=== PATIENT | male | born 1935 | race Caucasian/White ===

== ENCOUNTER 2020-01-22 07:47 | Outpatient (REF) | payer MEDICARE, OTHER, SELFPAY | END 2020-01-22 07:48 | disposition home or self-care (01) | LOC: HO.XRAY 07:47 | DX: Z13.89 Encounter for screening for other disorder (principal) ==

== ENCOUNTER 2020-03-28 08:07 | Inpatient (IN) | payer OTHER, MEDICARE, SELFPAY ==
[2020-03-28] VITALS (10 sets, daily range): BP systolic 121–151; BP diastolic 50–70; PULSE 59–66; RESP 12–22; TEMP 37–37.1; O2SAT 85–99; BMI 26.4
--- NOTE | ~2020-03-28 | US_ITS ---
EXAMINATION: US VENOUS ULTRASOUND WITH DOPPLER LOWER EXTREMITY, BILATERAL CLINICAL INFORMATION: Elevated d-dimer. Covid positive. COMPARISON: None TECHNIQUE: Ultrasound of the deep veins is performed from the hip to the calf with compression sonography and color and pulse Doppler assessment. Spectral analysis with color-flow imaging is performed. FINDINGS: RIGHT: There is normal venous compression and respiratory variation and augmented flow. The visualized common femoral vein, superficial femoral vein, profunda femoral vein, popliteal vein, and the trifurcation region shows no evidence of deep venous thrombosis. There is echogenic material seen in the greater saphenous vein. This extends to 1.4 cm from the saphenofemoral junction. The greater saphenous vein is otherwise not visualized. There is a surgical scar in this region. It is possible this represents changes from old vein stripping or vein harvest/ligation. There is no significant popliteal fossa cyst. LEFT: There is normal venous compression and respiratory variation and augmented flow. The visualized common femoral vein, superficial femoral vein, profunda femoral vein, popliteal vein, and the trifurcation region shows no evidence of deep venous thrombosis. There is no significant popliteal fossa cyst. US/US venous duplex LE BI IMPRESSION: No DVT demonstrated in the bilateral lower extremity. Echogenic material in the right greater saphenous vein 1.4 cm from the saphenofemoral junction. The remainder of the right greater saphenous vein cannot be identified and there is an adjacent surgical scar. This may represent changes from old stripping or vein harvesting/ligation.
--- NOTE | ~2020-03-28 | XR_ITS ---
EXAMINATION: XR CHEST CLINICAL INFORMATION: Hypoxia COMPARISON: 03/28/2020 TECHNIQUE: Frontal view of the chest was obtained. FINDINGS: Left chest wall pacer is unchanged. Median sternotomy wires. The lungs are well expanded. Patchy bilateral airspace opacities at the mid to lower lung. This is increased from prior. No pleural effusion or pneumothorax. The cardiomediastinal silhouette is unchanged, with a calcified aorta. XR/XR chest 1V IMPRESSION: Increased patchy bilateral airspace opacities.
--- NOTE | ~2020-03-28 | XR_ITS ---
EXAMINATION: XR CHEST CLINICAL INFORMATION: COVID COMPARISON: CT chest dated 03/23/2020 TECHNIQUE: Frontal view of the chest was obtained. FINDINGS: There are some questionable patchy opacities within the lower lungs bilaterally. No pleural effusion or pneumothorax. Normal heart size. Pulmonary vascularity within normal limits. Stably positioned dual-lead pacemaker. XR/XR chest 1V IMPRESSION: Questionable patchy lower lung airspace opacities versus artifact/summation shadow. Please note that portable radiographs are insensitive for mild pneumonitis.
--- NOTE | ~2020-03-28 | XR_ITS ---
EXAMINATION: XR CHEST CLINICAL INFORMATION: Line placement COMPARISON: 02/29/2020 TECHNIQUE: Frontal view of the chest was obtained. FINDINGS: Since the prior study, a right IJ line has been placed with its tip in the right atrium. No pneumothorax. Again seen is a bipolar left chest wall pacemaker. Bilateral patchy airspace opacities are unchanged. XR/XR chest 1V IMPRESSION: Right IJ line has its tip in the right atrium.
--- NOTE | ~2020-03-28 | CT_ITS ---
EXAMINATION: CT ANGIOGRAM OF THE CHEST WITH AND WITHOUT CONTRAST (CT PULMONARY ANGIOGRAM FOR PE) CLINICAL INFORMATION: Reason for Exam + covid c hypoxia at 85% on RA c chest pain COMPARISON: 03/23/2020 TECHNIQUE: Prior to contrast administration, noncontrast localization images were obtained. Subsequently, multidetector volumetric imaging was performed from the thoracic inlet to below the diaphragms following the administration of 80 mL Omnipaque 350 intravenous contrast. No contrast reaction reported Sagittal, coronal, and MIP oblique sagittal reformatted images were obtained on the CT workstation, uploaded to PACS, and reviewed. This CT examination was performed using dose optimization techniques as appropriate, variously including the following: *Automated exposure control *Adjustment of mA and/or kV according to patient size (this includes techniques or standardized protocols for targeted exams where dose is matched to indication/reason for exam; i.e. extremities or head) *Use of iterative reconstruction technique Total exam dose-length product 301 mGy-cm FINDINGS: QUALITY OF STUDY/CONTRAST BOLUS: Satisfactory. PULMONARY ARTERIES: No central or segmental pulmonary emboli. THORACIC AORTA: No aneurysm or dissection. LUNG: There are groundglass and predominantly patchy opacities within the lower lungs bilaterally with slight peripheral predominance compatible with COVID pneumonitis. Mild diffuse bronchial wall thickening and scattered endobronchial secretions are present. PLEURA: No pleural effusion or pneumothorax. MEDIASTINUM: Cardiomegaly. Triple vessel coronary calcifications. No pericardial effusion. No hilar or mediastinal lymphadenopathy. No evidence of septal bowing or right heart strain. No reflux of contrast into the hepatic veins to suggest elevated right heart pressures. CHEST WALL/AXILLA: No axillary or internal mammary lymphadenopathy. OSSEOUS STRUCTURES: No acute or suspicious osseous abnormality. UPPER ABDOMEN: Unremarkable. CT/CT angio chest PE protocol IMPRESSION: * No evidence of pulmonary embolism. * New bilateral lower lung groundglass and patchy airspace opacities are in a pattern classic for COVID pneumonitis, mild to moderate. * Cardiomegaly and triple vessel coronary calcifications. VTE: negative
--- NOTE | 2020-03-28 08:25 | ECG_ITS ---
Test Reason : SHORT OF BREATH Blood Pressure : / mmHG Vent. Rate : 060 BPM Atrial Rate : 060 BPM P-R Int : 196 ms QRS Dur : 160 ms QT Int : 474 ms P-R-T Axes : 072 -33 070 degrees QTc Int : 474 ms Atrial-paced rhythm Left axis deviation Left bundle branch block Abnormal ECG When compared with ECG of 23-MAR-2020 20:36, Electronic atrial pacemaker has replaced Sinus rhythm Referred By: Mikki Martinez Electronically Signed By:ABDIRIZAK STREET MD
[2020-03-28] MEDS: guaiFENesin DM 200/20/10 ML 10 ML SYRUP PO (09:00)
[2020-03-28] MEDS: 0.9 % Sodium Chloride 1,000 ML 999 ML IVCONT (09:01)
[2020-03-28 09:10] LABS: Base Excess VBG 0.3 mmol/L; HCO3 VBG 23 mmol/L; PCO2 VBG 32 mmHg; PO2 VBG 136 mmHg; pH VBG 7.46 (7.32-7.43)
[2020-03-28 09:16] LABS: Hemoglobin 13.7 g/dl (14.0-18.0); Imm Gran Abs Auto 0.09 X10*3/uL (0.00-0.03); Imm Gran Pct Auto 0.7 % (0.0-0.4); MANUAL DIFF FLAG SCAN; PLT CLUMP 1; SCAN SMEAR FLAG 1
[2020-03-28] MEDS: cefTRIAXone sodium 1 GM in 0.9 % Sodium Chloride 50 ML IV (09:16)
[2020-03-28 09:18] LABS: Basophils Percent Auto 0.2 % (0-2); Hematocrit 43.1 % (42-52); Lymphocytes Absolute Auto 0.6 X10*3/uL (1.2-4.9); Lymphocytes Percent Auto 4.9 % (20-40); Mean Corpuscular HGB Conc 31.8 g/dl (31.0-36.0); Mean Corpuscular Hemoglobin 26.9 pg (27.0-33.0); Mean Corpuscular Volume 84.5 fL (80-98); Mean Platelet Volume 11.3 fL (9.4-12.4); Monocytes Absolute Auto 0.8 X10*3/uL (0.1-1.2); Monocytes Percent Auto 6.1 % (2-11); Neutrophils Absolute Auto 11.2 X10*3/uL (2.0-8.3); Neutrophils Percent Auto 88.1 % (45-73); Platelet Count 243 X10*3/uL (160-400); Red Cell Distribution Width 16.3 % (11.0-16.0); White Blood Count 12.7 X10*3/uL (4.8-10.8)
--- NOTE | 2020-03-28 09:37 | ED_ITS ---
HPI - SOB/Dyspnea General Chief Complaint: Dyspnea <LIAM Horton - Last Filed: 03/28/20 15:40> Stated Complaint: sob <LIAM Horton - Last Filed: 03/28/20 15:40> Time Seen by Provider: 03/28/20 08:22 <LIAM Horton - Last Filed: 03/28/20 15:40> Source: patient and EMS <LIAM Horton - Last Filed: 03/28/20 15:40> Mode of arrival: EMS <LIAM Horton - Last Filed: 03/28/20 15:40> Limitations: no limitations <LIAM Horton Last Filed: 03/28/20 15:40> History of Present Illness HPI Narrative: 84-year-old male with a past medical history of atrial fibrillation with RVR currently on Eliquis and Medtronic pacer placement on 03/12/2020 at [facility], left bundle-branch block, CHF, ischemic cardiomyopathy with last EF 25-30%, CAD status post CABG x3 in 1997, hypertension, hyperlipidemia, CKD, hyperthyroidism, dysphagia, odynophagia, non alcoholic fatty liver, IBS, GERD, duodenal ulcer, colon polyps and neuropathy presenting to the ED with complaints of worsening shortness of breath with associated productive cough with clear/white colored sputum, chest wall discomfort and generalized weakness that started on Sunday (5 days ago) where he received a positive COVID test worse today. Patient was seen here and Reports that he was given a Z-Chris and took as prescribed. On arrival patient was on 85% on room air therefore was placed on 3 L of nasal cannula oxygen and is now some saturating at 94% on the 3 L. patient denies any fevers, dizziness, headaches, neck pain/stiffness, nausea/vomiting, palpitations, extremity edema, abdominal pain, diarrhea or constipation or any other symptoms complaints or concerns at this time. <LIAM Horton - Last Filed: 03/28/20 15:40> MD elicited complaint: shortness of breath, cough, pain with inspiration and chest pain <LIAM Horton - Last Filed: 03/28/20 15:40> Pertinent past history: congestive heart failure <LIAM Horton - Last Filed: 03/28/20 15:40> Onset (ago): day(s) (Five days worse today) <LIAM Horton - Last Filed: 03/28/20 15:40> Context: recent illness (Positive COVID on 03/23/2020) <LIAM Horton - Last Filed: 03/28/20 15:40> Timing: constant <LIAM Horton - Last Filed: 03/28/20 15:40> Severity: severe <LIAM Horton - Last Filed: 03/28/20 15:40> Exacerbating factors: lying flat, exertion, movement, coughing, inspiration, talking and deep breaths <LIAM Horton - Last Filed: 03/28/20 15:40> Relieving factors: nothing <LIAM Horton - Last Filed: 03/28/20 15:40> Known history of: congestive heart failure <LIAM Horton - Last Filed: 03/28/20 15:40> Associated symptoms: pain with inspiration, cough, sputum production, orthopnea and chest congestion <LIAM Horton - Last Filed: 03/28/20 15:40> Treatment prior to arrival: oxygen <LIAM Horton Last Filed: 03/28/20 15:40> Related Data Home oxygen amount: none <LIAM Horton - Last Filed: 03/28/20 15:40> Home Medications: Home Medications Medication Instructions Recorded Confirmed atorvastatin 1 tab PO DAILY 02/02/20 03/28/20 gabapentin 1 cap PO BID 02/02/20 03/28/20 ranolazine 1 tab PO BID 02/02/20 03/28/20 tamsulosin 1 cap PO DAILY 02/02/20 03/28/20 apixaban [Eliquis] 1 tab PO BID 03/23/20 03/28/20 sacubitril-valsartan [Entresto] 1 tab PO BID 03/23/20 03/28/20 sotalol 40 mg PO BID 03/23/20 03/28/20 Previous Rx's Medication Instructions Recorded omeprazole 20 mg PO BID #60 cap 02/05/20 methimazole 10 mg tablet 10 mg PO DAILY 30 Days #30 tab 03/02/20 <LIAM Horton - Last Filed: 03/28/20 15:40> Allergies/Adverse Reactions: Allergies Allergy/AdvReac Type Severity Reaction Status Date / Time simvastatin [From ZOCOR] Allergy Mild MUSCLE Verified 03/02/20 11:00 CRAMPS, stomsach cramps <LIAM Horton - Last Filed: 03/28/20 15:40> Review of Systems Review of Systems: Constitutional : No Weight loss, No Fever, no night sweats, + Chills, + Fatigue, + Malaise ENT/Mouth : No Hearing loss, No Ear Pain, No Nasal Congestion, No Sinus Pain, No Hoarseness, No sore throat, No Rhinorrhea, No Swallowing Difficulty Eyes: No Eye Pain, No Swelling, No Redness, No Foreign Body, No Discharge, No Vision Changes Cardiovascular : + Chest pain worse c cough, + SOB, + Dyspnea on Exertion, + Orthopnea, No Edema, No extremity swelling, No Palpitations Respiratory : + Cough, + Sputum, No Wheezing, No Dyspnea Gastrointestinal : No Nausea, No Vomiting, No Diarrhea, No abdominal Pain, No Hematochezia, No Melena Genitourinary : No irregular bleeding, No Dysuria, No Urinary Frequency, No Hematuria, No Urinary Incontinence, No Urgency, No Flank Pain, No Urinary Flow Changes, No Hesitancy Musculoskeletal : No joint pain, No Myalgias, No Joint Swelling Skin : No Skin Lesions, No rash Neuro : + Gen Weakness, No focal weakness, No Numbness, No Paresthesias, No Loss of Consciousness, No Dizziness, No Headache Psych : No Anxiety/Panic, No Depression, No SI/HI/AH/VH Heme/Lymph: No Bruising, No Bleeding,No Lymphadenopathy Endocrine : No Polyuria, No Polydipsia, No Temperature Intolerance <LIAM Horton - Last Filed: 03/28/20 15:40> Yes all other systems are reviewed and are negative <LIAM Horton - Last Filed: 03/28/20 15:40> [facility] Past Medical History Attestation statement: The following information was validated with the patient. <LIAM Horton - Last Filed: 03/28/20 15:40> Medical History: Medical History Afib CAD (coronary artery disease) CHF (congestive heart failure) CKD (chronic kidney disease) Colon polyps Coronary artery disease involving coronary bypass graft Duodenal ulcer GERD (gastroesophageal reflux disease) Hiatal hernia Hyperlipidemia Hypertension IBS (irritable bowel syndrome) Ischemic cardiomyopathy Left bundle-branch block, unspecified Neuropathy Nonalcoholic fatty liver disease <LIAM Horton - Last Filed: 03/28/20 15:40> Surgical History: Surgical History History of tonsillectomy Hx of CABG <LIAM Horton - Last Filed: 03/28/20 15:40> Family History Family History: Family History Mother Heart disease Father Myocardial infarction <LIAM Horton - Last Filed: 03/28/20 15:40> Social History Social History: Social History Household Members: Children Housing: House Alcohol intake: never Smoking Status: Former smoker Smoked in Last 30 Days: No Second Hand Smoke Exposure: No Use of substances other than those prescribed or required for medical reasons: No Advance Directives: No Advance Directives Information Provided: No service: Yes Current occupational status: retired <LIAM Horton - Last Filed: 03/28/20 15:40> Physical Exam Vital Signs: Vital Signs: Last Vital Signs Temp 98.6 F 03/28/20 15:57 Pulse 60 03/28/20 22:39 Resp 22 H 03/28/20 22:00 BP 151/70 H 03/28/20 22:39 Pulse Ox 94 03/28/20 22:39 Body Mass Index 26.4 Vital signs have been reviewed as normal and appeared to be correct. Blood pressure normal. Heart rate normal. Respiration rate normal. Temperature normal. Oxygen saturation hypoxic at 85 % on room air. <LIAM Horton - Last Filed: 03/28/20 15:40> Vital Signs: Last Vital Signs Temp 98.6 F 03/28/20 15:57 Pulse 60 03/28/20 22:39 Resp 22 H 03/28/20 22:00 BP 151/70 H 03/28/20 22:39 Pulse Ox 94 03/28/20 22:39 Body Mass Index 26.4 <Verna Nice MD - Last Filed: 03/29/20 06:08> Appearance: Alert. Oriented X3. Moderate respiratory distress. Head: Normal external exam. Normocephalic. Atraumatic. Able to rotate head bilaterally. Eyes: PERRLA. EOMI. No nystagmus noted. Conjunctiva and sclera normal. Eyelids normal. Corneal reflex normal. ENT:Hearing normal. Pharynx normal. Uvula midline. tongue midline. Moist mucous membranes. No trismus noted. No drooling noted. No muffled voice noted. No nystagmus noted. Neck: Normal inspection. Neck supple. FROM. No adenopathy. Trachea midline. Thyroid Normal. No meningeal signs. No neck mass noted. CVS: Normal heart rate and rhythm. Heart sound normal. No murmurs noted. Pulses normal throughout. Respiratory: Moderate respiratory distress with hypoxia and accessory muscle usage noted with faint expiratory wheezing at the upper bases anteriorly and posteriorly. With decreased breath sounds. Otherwise no rales/rhonchi noted. No crepitus noted. No flail chest noted. Abdomen: Soft and nontender. Bowel sounds normal in all 4 quadrants. No distention noted. No organomegaly noted. No visible injury noted. Back: No CVA tenderness. Full range of motion noted. Skin: Skin warm and dry. Normal skin color. Normal skin turgor. No rashes /lesions/lacerations noted. Extremities: No lower extremity edema. No calf tenderness noted. Extremities exhibit normal range of motion. Extremities nontender. Able to shrug shoulders bilaterally and keep up against resistance. Neuro: Oriented X 3. No motor deficit. No sensory deficit. Reflexes normal. Moving all extremities. No focal motor deficits. Cranial nerves II-XI intact bilaterally. Facial strength normal. Normal cognition. Speech normal. Gait normal. Strength 5/5 throughout. No pronator drift. No tremor noted. No fasciculations noted. No rigidity noted. Muscle tone normal throughout. No asterixis noted. <LIAM Horton - Last Filed: 03/28/20 15:40> Course Course Course Narrative: 8:25AM 84-year-old male with a past medical history of atrial fibrillation with RVR currently on EliIID and Medtronic pacer placement on 03/12/2020 at [facility], left bundle-branch block, CHF, ischemic cardiomyopathy with last EF 25-30%, CAD status post CABG x3 in 1997, hypertension, hyperlipidemia, CKD, hyperthyroidism, dysphagia, odynophagia, non alcoholic fatty liver, IBS, GERD, duodenal ulcer, colon polyps and neuropathy who is + for COVID since 03/23/20 presenting to the ED with complaints of worsening shortness of breath with associated productive cough with clear/white colored sputum, chest wall discomfort and generalized weakness x 5 days worse today despite being seen here on 03/23/2020 and given a Z- Chris and took as prescribed. On arrival patient is alert and oriented x3 although is in moderate respiratory distress his oxygen saturation was 85% on room air therefore was placed on 3 L of nasal cannula oxygen and is now some saturating at 94% on the 3 L. otherwise appears well developed/well nourished. Nontoxic appearing. No signs of dehydration. Concern for PE versus CHF versus ACS versus worsening COVID. Plan: Labs, blood cultures, lactic acid, EKG, chest x-ray and a VBG. Provide IV fluids, Robitussin for the patient's cough, IV Decadron 10 mg, 1 g of Rocephin then re-evaluate. <LIAM Horton - Last Filed: 03/28/20 15:40> 0555: On re-evaluation patient was noted to be in the low 80s 83-84% on max Venturi mask at 55% and after application 4 L of nasal cannula concomitantly only mild improvement noted to 88%. On clinical exam, patient does appear comfortable, no tachypnea or increased work of breathing noted. The decision was made to place patient on high-flow nasal cannula and the inpatient hospitalist team was notified of this decision. <Verna Nice MD - Last Filed: 03/29/20 06:08> Reevaluation(s) Reevaluation #1: - White blood cell count 30346. - D-dimer 319. - VBG pH 7.46 otherwise the rest of the VBG is within normal limits. - sodium 134. - BUN 20. - Magnesium 2.8. - LDH 330. - CRP 1.03. - BNP 348. - Troponin 5.8. - Lactic acid 2.2. - Otherwise all other labs are within normal limits. - CXR revealed questionable patchy lower lung airspace opacities versus artifact. - EKG revealed Atrial paced rhythm with a ventricular rate of 60 otherwise no acute ischemic changes and similar when compared to prior EKG on 03/23/2020. - therefore due to elevated D-dimer will obtain a CTA of chest for PE. Plan is to admit for COVID with hypoxia with pneumonia. Patient understands agrees with this plan. <LIAM Horton - Last Filed: 03/28/20 15:40> Time: 11:30 <LIAM Horton Last Filed: 03/28/20 15:40> Reevaluation #2: - still awaiting CTA of chest for PE - I spoke to the hospitalist Dorothy Sanders PA-C with accepted admission at this time. Patient understands and agrees the plan. <LIAM Horton - Last Filed: 03/28/20 15:40> Time: 12:22 <LIAM Horton Last Filed: 03/28/20 15:40> Reevaluation #3: - for PE negative for pulmonary embolism although revealed no bilateral lower lung ground-glass opacity and patchy airspace opacities are in pattern of classic COVID pneumonitis [id number]. Cardiomegaly and triple vessel coronary calcifications noted. Plan is to admit to the hospitalist Dorothy Sanders PA-C accepted admission. Patient understands agrees with this plan. <LIAM Horton - Last Filed: 03/28/20 15:40> Time: 13:41 <LIAM Horton Last Filed: 03/28/20 15:40> MDM - SOB/Dyspnea Differential Diagnosis Differential diagnosis: Likely congestive heart failure, pneumonia, asthma with exacerbation, pulm onary embolism, pleural effusion and anemia <LIAM Horton Last Filed: 03/28/20 15:40> Medical Records Attestation: I reviewed the patient's medical records. <LIAM Horton Last Filed: 0 03/28/20 15:40> Lab Data Attestation: I reviewed the patient's lab results. <LIAM Horton Last Filed: 0 03/28/20 15:40> Result diagrams: : 03/28/20 08:55 03/28/20 08:55 <LIAM Horton - Last Filed: 03/28/20 15:40> Labs: Lab Results 03/28/20 03/28/20 03/28/20 Range/Units 08:55 08:55 08:55 WBC 12.7 H (4.8-10.8) X10*3/uL RBC 5.10 D (4.60-5.80) X10*6/uL Hgb 13.7 L D (14.0-18.0) g/dl Hct 43.1 D (42-52) % MCV 84.5 (80-98) fL MCH 26.9 L (27.0-33.0) pg MCHC 31.8 (31.0-36.0) g/dl RDW 16.3 H (11.0-16.0) % Plt Count 243 (160-400) X10*3/uL MPV 11.3 (9.4-12.4) fL Immature Gran % (Auto) 0.7 H (0.0-0.4) % Neut % (Auto) 88.1 H (45-73) % Lymph % (Auto) 4.9 L (20-40) % Foster % (Auto) 6.1 (2-11) % Eos % (Auto) 0.0 (0-4) % Baso % (Auto) 0.2 (0-2) % Lymph # (Auto) 0.6 L (1.2-4.9) X10*3/uL Foster # (Auto) 0.8 (0.1-1.2) X10*3/uL Eos # (Auto) 0.0 (0.0-0.4) X10*3/uL Baso # (Auto) 0.0 (0.0-0.2) X10*3/uL Abs Immat Gran (auto) 0.09 H (0.00-0.03) X10*3/uL Absolute Neuts (auto) 11.2 H (2.0-8.3) X10*3/uL Absolute Nucleated RBC 0.000 (0.0-0.012) X10*3/uL Nucleated RBC % (auto) 0.0 (0.0-0.2) /100WBC Smear Tech's Comments VERIFIED PT (10.8-13.0) SEC INR (0.9-1.1) APTT (24.1-38.0) SEC D-Dimer NG/ML VBG pH (7.32-7.43) VBG pCO2 mmHg VBG pO2 mmHg VBG HCO3 mmol/L VBG O2 Saturation % VBG Base Excess mmol/L Sodium 134 L (135-145) mmol/L Potassium 5.1 (3.3-5.1) mmol/L Chloride 99 (96-108) mmol/L Carbon Dioxide 25 (22-29) mmol/L Anion Gap 15 (12-20) BUN 20 H (9-16) mg/dL Creatinine 0.95 (0.5-1.4) mg/dL Estim Creat Clear Calc 51.3 Estimated GFR > 60 Random Glucose 94 (60-115) mg/dL Lactic Acid (0.5-2.0) mmol/L Lactic Acid Fup @ 2Hr (0.5-2.0) mmol/L Calcium 9.5 D (8.4-10.2) mg/dL Magnesium 2.8 H (1.6-2.6) mg/dL Ferritin 89 (20-250) ng/mL Total Bilirubin 0.9 (0.0-1.0) mg/dL Direct Bilirubin 0.3 (0.0-0.5) mg/dL AST 25 (5-37) U/L ALT 21 (0-40) U/L Alkaline Phosphatase 84 (39-117) U/L Lactate Dehydrogenase 330 H (118-273) U/L Troponin I High Sens 5.8 (<3.5-35.0) ng/L C-Reactive Protein 1.03 H (< or = 0.50) mg/dL B-Natriuretic Peptide 348 H (<100) pg/mL Total Protein 7.5 (6.5-8.0) g/dL Albumin 4.2 (3.5-5.0) g/dL Procalcitonin ng/mL 03/28/20 03/28/20 03/28/20 Range/Units 08:55 08:55 09:11 WBC (4.8-10.8) X10*3/uL RBC (4.60-5.80) X10*6/uL Hgb (14.0-18.0) g/dl Hct (42-52) % MCV (80-98) fL MCH (27.0-33.0) pg MCHC (31.0-36.0) g/dl RDW (11.0-16.0) % Plt Count (160-400) X10*3/uL MPV (9.4-12.4) fL Immature Gran % (Auto) (0.0-0.4) % Neut % (Auto) (45-73) % Lymph % (Auto) (20-40) % Foster % (Auto) (2-11) % Eos % (Auto) (0-4) % Baso % (Auto) (0-2) % Lymph # (Auto) (1.2-4.9) X10*3/uL Foster # (Auto) (0.1-1.2) X10*3/uL Eos # (Auto) (0.0-0.4) X10*3/uL Baso # (Auto) (0.0-0.2) X10*3/uL Abs Immat Gran (auto) (0.00-0.03) X10*3/uL Absolute Neuts (auto) (2.0-8.3) X10*3/uL Absolute Nucleated RBC (0.0-0.012) X10*3/uL Nucleated RBC % (auto) (0.0-0.2) /100WBC Smear Tech's Comments PT (10.8-13.0) SEC INR (0.9-1.1) APTT (24.1-38.0) SEC D-Dimer NG/ML VBG pH 7.46 H (7.32-7.43) VBG pCO2 32 mmHg VBG pO2 136 mmHg VBG HCO3 23 mmol/L VBG O2 Saturation 99.0 % VBG Base Excess 0.3 mmol/L Sodium (135-145) mmol/L Potassium (3.3-5.1) mmol/L Chloride (96-108) mmol/L Carbon Dioxide (22-29) mmol/L Anion Gap (12-20) BUN (9-16) mg/dL Creatinine (0.5-1.4) mg/dL Estim Creat Clear Calc Estimated GFR Random Glucose (60-115) mg/dL Lactic Acid 2.2 H* (0.5-2.0) mmol/L Lactic Acid Fup @ 2Hr (0.5-2.0) mmol/L Calcium (8.4-10.2) mg/dL Magnesium (1.6-2.6) mg/dL Ferritin (20-250) ng/mL Total Bilirubin (0.0-1.0) mg/dL Direct Bilirubin (0.0-0.5) mg/dL AST (5-37) U/L ALT (0-40) U/L Alkaline Phosphatase (39-117) U/L Lactate Dehydrogenase (118-273) U/L Troponin I High Sens (<3.5-35.0) ng/L C-Reactive Protein (< or = 0.50) mg/dL B-Natriuretic Peptide (<100) pg/mL Total Protein (6.5-8.0) g/dL Albumin (3.5-5.0) g/dL Procalcitonin 0.03 ng/mL 03/28/20 03/28/20 Range/Units 09:49 11:44 WBC (4.8-10.8) X10*3/uL RBC (4.60-5.80) X10*6/uL Hgb (14.0-18.0) g/dl Hct (42-52) % MCV (80-98) fL MCH (27.0-33.0) pg MCHC (31.0-36.0) g/dl RDW (11.0-16.0) % Plt Count (160-400) X10*3/uL MPV (9.4-12.4) fL Immature Gran % (Auto) (0.0-0.4) % Neut % (Auto) (45-73) % Lymph % (Auto) (20-40) % Foster % (Auto) (2-11) % Eos % (Auto) (0-4) % Baso % (Auto) (0-2) % Lymph # (Auto) (1.2-4.9) X10*3/uL Foster # (Auto) (0.1-1.2) X10*3/uL Eos # (Auto) (0.0-0.4) X10*3/uL Baso # (Auto) (0.0-0.2) X10*3/uL Abs Immat Gran (auto) (0.00-0.03) X10*3/uL Absolute Neuts (auto) (2.0-8.3) X10*3/uL Absolute Nucleated RBC (0.0-0.012) X10*3/uL Nucleated RBC % (auto) (0.0-0.2) /100WBC Smear Tech's Comments PT 16.3 H (10.8-13.0) SEC INR 1.4 H (0.9-1.1) APTT 31.3 (24.1-38.0) SEC D-Dimer 319 NG/ML VBG pH (7.32-7.43) VBG pCO2 mmHg VBG pO2 mmHg VBG HCO3 mmol/L VBG O2 Saturation % VBG Base Excess mmol/L Sodium (135-145) mmol/L Potassium (3.3-5.1) mmol/L Chloride (96-108) mmol/L Carbon Dioxide (22-29) mmol/L Anion Gap (12-20) BUN (9-16) mg/dL Creatinine (0.5-1.4) mg/dL Estim Creat Clear Calc Estimated GFR Random Glucose (60-115) mg/dL Lactic Acid (0.5-2.0) mmol/L Lactic Acid Fup @ 2Hr 1.6 (0.5-2.0) mmol/L Calcium (8.4-10.2) mg/dL Magnesium (1.6-2.6) mg/dL Ferritin (20-250) ng/mL Total Bilirubin (0.0-1.0) mg/dL Direct Bilirubin (0.0-0.5) mg/dL AST (5-37) U/L ALT (0-40) U/L Alkaline Phosphatase (39-117) U/L Lactate Dehydrogenase (118-273) U/L Troponin I High Sens (<3.5-35.0) ng/L C-Reactive Protein (< or = 0.50) mg/dL B-Natriuretic Peptide (<100) pg/mL Total Protein (6.5-8.0) g/dL Albumin (3.5-5.0) g/dL Procalcitonin ng/mL <LIAM Horton - Last Filed: 03/28/20 15:40> Lab Results 03/28/20 03/28/20 03/28/20 Range/Units 08:55 08:55 08:55 WBC 12.7 H (4.8-10.8) X10*3/uL RBC 5.10 D (4.60-5.80) X10*6/uL Hgb 13.7 L D (14.0-18.0) g/dl Hct 43.1 D (42-52) % MCV 84.5 (80-98) fL MCH 26.9 L (27.0-33.0) pg MCHC 31.8 (31.0-36.0) g/dl RDW 16.3 H (11.0-16.0) % Plt Count 243 (160-400) X10*3/uL MPV 11.3 (9.4-12.4) fL Immature Gran % (Auto) 0.7 H (0.0-0.4) % Neut % (Auto) 88.1 H (45-73) % Lymph % (Auto) 4.9 L (20-40) % Foster % (Auto) 6.1 (2-11) % Eos % (Auto) 0.0 (0-4) % Baso % (Auto) 0.2 (0-2) % Lymph # (Auto) 0.6 L (1.2-4.9) X10*3/uL Foster # (Auto) 0.8 (0.1-1.2) X10*3/uL Eos # (Auto) 0.0 (0.0-0.4) X10*3/uL Baso # (Auto) 0.0 (0.0-0.2) X10*3/uL Abs Immat Gran (auto) 0.09 H (0.00-0.03) X10*3/uL Absolute Neuts (auto) 11.2 H (2.0-8.3) X10*3/uL Absolute Nucleated RBC 0.000 (0.0-0.012) X10*3/uL Nucleated RBC % (auto) 0.0 (0.0-0.2) /100WBC Smear Tech's Comments VERIFIED PT (10.8-13.0) SEC INR (0.9-1.1) APTT (24.1-38.0) SEC D-Dimer NG/ML VBG pH (7.32-7.43) VBG pCO2 mmHg VBG pO2 mmHg VBG HCO3 mmol/L VBG O2 Saturation % VBG Base Excess mmol/L Sodium 134 L (135-145) mmol/L Potassium 5.1 (3.3-5.1) mmol/L Chloride 99 (96-108) mmol/L Carbon Dioxide 25 (22-29) mmol/L Anion Gap 15 (12-20) BUN 20 H (9-16) mg/dL Creatinine 0.95 (0.5-1.4) mg/dL Estim Creat Clear Calc 51.3 Estimated GFR > 60 Random Glucose 94 (60-115) mg/dL Lactic Acid (0.5-2.0) mmol/L Lactic Acid Fup @ 2Hr (0.5-2.0) mmol/L Calcium 9.5 D (8.4-10.2) mg/dL Magnesium 2.8 H (1.6-2.6) mg/dL Ferritin 89 (20-250) ng/mL Total Bilirubin 0.9 (0.0-1.0) mg/dL Direct Bilirubin 0.3 (0.0-0.5) mg/dL AST 25 (5-37) U/L ALT 21 (0-40) U/L Alkaline Phosphatase 84 (39-117) U/L Lactate Dehydrogenase 330 H (118-273) U/L Troponin I High Sens 5.8 (<3.5-35.0) ng/L C-Reactive Protein 1.03 H (< or = 0.50) mg/dL B-Natriuretic Peptide 348 H (<100) pg/mL Total Protein 7.5 (6.5-8.0) g/dL Albumin 4.2 (3.5-5.0) g/dL Procalcitonin ng/mL 03/28/20 03/28/20 03/28/20 Range/Units 08:55 08:55 09:11 WBC (4.8-10.8) X10*3/uL RBC (4.60-5.80) X10*6/uL Hgb (14.0-18.0) g/dl Hct (42-52) % MCV (80-98) fL MCH (27.0-33.0) pg MCHC (31.0-36.0) g/dl RDW (11.0-16.0) % Plt Count (160-400) X10*3/uL MPV (9.4-12.4) fL Immature Gran % (Auto) (0.0-0.4) % Neut % (Auto) (45-73) % Lymph % (Auto) (20-40) % Foster % (Auto) (2-11) % Eos % (Auto) (0-4) % Baso % (Auto) (0-2) % Lymph # (Auto) (1.2-4.9) X10*3/uL Foster # (Auto) (0.1-1.2) X10*3/uL Eos # (Auto) (0.0-0.4) X10*3/uL Baso # (Auto) (0.0-0.2) X10*3/uL Abs Immat Gran (auto) (0.00-0.03) X10*3/uL Absolute Neuts (auto) (2.0-8.3) X10*3/uL Absolute Nucleated RBC (0.0-0.012) X10*3/uL Nucleated RBC % (auto) (0.0-0.2) /100WBC Smear Tech's Comments PT (10.8-13.0) SEC INR (0.9-1.1) APTT (24.1-38.0) SEC D-Dimer NG/ML VBG pH 7.46 H (7.32-7.43) VBG pCO2 32 mmHg VBG pO2 136 mmHg VBG HCO3 23 mmol/L VBG O2 Saturation 99.0 % VBG Base Excess 0.3 mmol/L Sodium (135-145) mmol/L Potassium (3.3-5.1) mmol/L Chloride (96-108) mmol/L Carbon Dioxide (22-29) mmol/L Anion Gap (12-20) BUN (9-16) mg/dL Creatinine (0.5-1.4) mg/dL Estim Creat Clear Calc Estimated GFR Random Glucose (60-115) mg/dL Lactic Acid 2.2 H* (0.5-2.0) mmol/L Lactic Acid Fup @ 2Hr (0.5-2.0) mmol/L Calcium (8.4-10.2) mg/dL Magnesium (1.6-2.6) mg/dL Ferritin (20-250) ng/mL Total Bilirubin (0.0-1.0) mg/dL Direct Bilirubin (0.0-0.5) mg/dL AST (5-37) U/L ALT (0-40) U/L Alkaline Phosphatase (39-117) U/L Lactate Dehydrogenase (118-273) U/L Troponin I High Sens (<3.5-35.0) ng/L C-Reactive Protein (< or = 0.50) mg/dL B-Natriuretic Peptide (<100) pg/mL Total Protein (6.5-8.0) g/dL Albumin (3.5-5.0) g/dL Procalcitonin 0.03 ng/mL 03/28/20 03/28/20 Range/Units 09:49 11:44 WBC (4.8-10.8) X10*3/uL RBC (4.60-5.80) X10*6/uL Hgb (14.0-18.0) g/dl Hct (42-52) % MCV (80-98) fL MCH (27.0-33.0) pg MCHC (31.0-36.0) g/dl RDW (11.0-16.0) % Plt Count (160-400) X10*3/uL MPV (9.4-12.4) fL Immature Gran % (Auto) (0.0-0.4) % Neut % (Auto) (45-73) % Lymph % (Auto) (20-40) % Foster % (Auto) (2-11) % Eos % (Auto) (0-4) % Baso % (Auto) (0-2) % Lymph # (Auto) (1.2-4.9) X10*3/uL Foster # (Auto) (0.1-1.2) X10*3/uL Eos # (Auto) (0.0-0.4) X10*3/uL Baso # (Auto) (0.0-0.2) X10*3/uL Abs Immat Gran (auto) (0.00-0.03) X10*3/uL Absolute Neuts (auto) (2.0-8.3) X10*3/uL Absolute Nucleated RBC (0.0-0.012) X10*3/uL Nucleated RBC % (auto) (0.0-0.2) /100WBC Smear Tech's Comments PT 16.3 H (10.8-13.0) SEC INR 1.4 H (0.9-1.1) APTT 31.3 (24.1-38.0) SEC D-Dimer 319 NG/ML VBG pH (7.32-7.43) VBG pCO2 mmHg VBG pO2 mmHg VBG HCO3 mmol/L VBG O2 Saturation % VBG Base Excess mmol/L Sodium (135-145) mmol/L Potassium (3.3-5.1) mmol/L Chloride (96-108) mmol/L Carbon Dioxide (22-29) mmol/L Anion Gap (12-20) BUN (9-16) mg/dL Creatinine (0.5-1.4) mg/dL Estim Creat Clear Calc Estimated GFR Random Glucose (60-115) mg/dL Lactic Acid (0.5-2.0) mmol/L Lactic Acid Fup @ 2Hr 1.6 (0.5-2.0) mmol/L Calcium (8.4-10.2) mg/dL Magnesium (1.6-2.6) mg/dL Ferritin (20-250) ng/mL Total Bilirubin (0.0-1.0) mg/dL Direct Bilirubin (0.0-0.5) mg/dL AST (5-37) U/L ALT (0-40) U/L Alkaline Phosphatase (39-117) U/L Lactate Dehydrogenase (118-273) U/L Troponin I High Sens (<3.5-35.0) ng/L C-Reactive Protein (< or = 0.50) mg/dL B-Natriuretic Peptide (<100) pg/mL Total Protein (6.5-8.0) g/dL Albumin (3.5-5.0) g/dL Procalcitonin ng/mL <Verna Nice MD - Last Filed: 03/29/20 06:08> Imaging Data Chest x-ray: Attestation: I personally reviewed and interpreted this imaging study as follows: <LIAM Horton - Last Filed: 03/28/20 15:40> Radiologist's impression: FINDINGS: There are some questionable patchy opacities within the lower lungs bilaterally. No pleural effusion or pneumothorax. Normal heart size. Pulmonary vascularity within normal limits. Stably positioned dual-lead pacemaker. XR/XR chest 1V IMPRESSION: Questionable patchy lower lung airspace opacities versus artifact/summation shadow. Please note that portable radiographs are insensitive for mild pneumonitis. <LIAM Horton - Last Filed: 03/28/20 15:40> CT of chest for PE: Attestation: I personally reviewed and interpreted this imaging study as follows: <LIAM Horton - Last Filed: 03/28/20 15:40> Radiologist's impression: FINDINGS: QUALITY OF STUDY/CONTRAST BOLUS: Satisfactory. PULMONARY ARTERIES: No central or segmental pulmonary emboli. THORACIC AORTA: No aneurysm or dissection. LUNG: There are groundglass and predominantly patchy opacities within the lower lungs bilaterally with slight peripheral predominance compatible with COVID pneumonitis. Mild diffuse bronchial wall thickening and scattered endobronchial secretions are present. PLEURA: No pleural effusion or pneumothorax. MEDIASTINUM: Cardiomegaly. Triple vessel coronary calcifications. No pericardial effusion. No hilar or mediastinal lymphadenopathy. No evidence of septal bowing or right heart strain. No reflux of contrast into the hepatic veins to suggest elevated right heart pressures. CHEST WALL/AXILLA: No axillary or internal mammary lymphadenopathy. OSSEOUS STRUCTURES: No acute or suspicious osseous abnormality. UPPER ABDOMEN: Unremarkable. CT/CT angio chest PE protocol IMPRESSION: * No evidence of pulmonary embolism. * New bilateral lower lung groundglass and patchy airspace opacities are in a pattern classic for COVID pneumonitis, mild to moderate. * Cardiomegaly and triple vessel coronary calcifications. VTE: negative <LIAM Horton Last Filed: 03/28/20 15:40> ECG Data Attestation: I personally reviewed and interpreted this ECG as follows: <LIAM Horton Last Filed: 03/28/20 15:40> ECG interpretation date: 03/28/20 <LIAM Horton Last Filed: 03/28/20 15:40> ECG interpretation time: 10:03 <LIAM Horton - Last Filed: 03/28/20 15:40> Interpretation: Atrial paced rhythm with a ventricular rate of 60 otherwise no acute ischemic changes and similar when compared to prior EKG on 03/23/2020. <LIAM Horton Last Filed: 03/28/20 15:40> Critical Care Time Critical Care Time Critical Care Time: Yes <LIAM Horton - Last Filed: 03/28/20 15:40> Total Critical Care Time: 60 <LIAM Horton - Last Filed: 03/28/20 15:40> Attestation: I personally attest to this time spent taking care of the patient <LIAM Horton Last Filed: 03/28/20 15:40> Discharge Plan Discharge Clinical Impression: COVID-19, Hypoxia <LIAM Horton - Last Filed: 03/28/20 15:40> Patient Disposition: Admitted As Inpatient <LIAM Horton Last Filed: 03/28/20 15:40>
[2020-03-28 09:38] LABS: B Type Natriuretic Peptide 348 pg/mL (<100); Troponin-I High Sensitivity 5.8 ng/L (<3.5-35.0)
[2020-03-28 09:42] LABS: SLIDE REVIEW VERIFIED
[2020-03-28 09:47] LABS: Alanine Aminotransferase 21 U/L (0-40); Albumin Level 4.2 g/dL (3.5-5.0); Alkaline Phosphatase 84 U/L (39-117); Anion Gap 15 (12-20); Aspartate Amino Transferase 25 U/L (5-37); Bilirubin Direct 0.3 mg/dL (0.0-0.5); Bilirubin Total 0.9 mg/dL (0.0-1.0); Blood Urea Nitrogen 20 mg/dL (9-16); C Reactive Protein 1.03 mg/dL (< or = 0.50); Calcium 9.5 mg/dL (8.4-10.2); Carbon Dioxide 25 mmol/L (22-29); Chloride 99 mmol/L (96-108); Creatinine Clr Calc Pharmacy 51.3; Estimated Glomerular Filt Rate > 60; Glucose Random 94 mg/dL (60-115); Lactate Dehydrogenase 330 U/L (118-273); Magnesium 2.8 mg/dL (1.6-2.6); Potassium 5.1 mmol/L (3.3-5.1); Sodium 134 mmol/L (135-145); Total Protein 7.5 g/dL (6.5-8.0)
[2020-03-28 09:54] LABS: Procalcitonin 0.03 ng/mL
[2020-03-28 09:55] LABS: Ferritin 89 ng/mL (20-250)
[2020-03-28 10:03] LABS: INTERNATIONAL NORM RATIO 1.4 (0.9-1.1); Prothrombin Time 16.3 SEC (10.8-13.0)
[2020-03-28 10:06] LABS: D Dimer 319 NG/ML; Partial Thromboplastin Time 31.3 SEC (24.1-38.0)
[2020-03-28] MEDS: guaiFEN/Codeine SF 200/20/10ML 10 ML LIQUID 5 ML PO (10:59)
[2020-03-28 11:15] LABS: Reflex Lactate? Lactic Acid Added
[2020-03-28] MEDS: Albuterol Sulfate (0.083%) 2.5 MG/3 ML VIAL.NEB 5 MG INHALE (12:07)
[2020-03-28 12:14] LABS: ~Lactic Acid-LAB USE ONLY 1.6 mmol/L (0.5-2.0)
[2020-03-28 12:20] LABS: Lactic Acid 2.2 mmol/L (0.5-2.0)
[2020-03-28] MEDS: iohexoL 350 MG/ML 100 ML INFUS..BTL IV (12:36)
--- NOTE | 2020-03-28 15:06 | PM.EVENT ---
Event Note Date of Service: 03/28/20 Event Note: the patient was seen and evaluated with LIAM Manuel. I agree with her note, assessment and plan with the following. An 84 years old male with PMH of CKD, CAD, CMP on ppm, CHF, AFib among others who presented to the hospital complaining of shortness of breath and lethargy for almost a week now. He tested positive for COVID on the previous ED visit and his symptoms have been worsening since then. He was noticed to have hypoxia at time of presentation of 84. Acute hypoxic respiratory failure COVID-19 infection Oxygen supplement, to wean down as tolerated Dexamethasone treatment Not a candidate for remdesivir or plasma Rest of evaluations by LIAM note.
--- NOTE | 2020-03-28 15:09 | PM.IMHP ---
History of Present Illness Date of Service: 03/28/20 Chief Complaint: Shortness of breath This is an 84-year-old male who presents the emergency department with shortness of breath and cough. Both of his sons tested positive for coronavirus. He was evaluated in the emergency department on March 23 and tested positive himself. At that time he was not hypoxic and he was discharged home. He returns today with increasing shortness of breath starting yesterday. He has ongoing dry cough and chest pain with coughing. On arrival he was hypoxic with an oxygen saturation of 85% on room air. Lactic acid was 2.2, CRP 1.03, LDH 330. CTA showed findings consistent with covid but no PE. Given that he initially required oxygen, the decision was made to admit him for further management. Review of Systems Review of Systems: Yes all other systems are reviewed and are negative Constitutional: Constitutional: Denies chills and Denies fever(s) Cardiovascular: Cardiovascular: Denies chest pain and Reports dyspnea Respiratory: Respiratory: Reports cough and Reports dyspnea Gastrointestinal: Gastrointestinal: Denies abdominal pain [facility] Medical History Afib CAD (coronary artery disease) CHF (congestive heart failure) CKD (chronic kidney disease) Colon polyps Coronary artery disease involving coronary bypass graft Duodenal ulcer GERD (gastroesophageal reflux disease) Hiatal hernia Hyperlipidemia Hypertension IBS (irritable bowel syndrome) Ischemic cardiomyopathy Left bundle-branch block, unspecified Neuropathy Nonalcoholic fatty liver disease Family History Mother Heart disease Father Myocardial infarction Surgical History History of tonsillectomy Hx of CABG Social History Household Members: Children Housing: House Alcohol intake: never Smoking Status: Former smoker Smoked in Last 30 Days: No Second Hand Smoke Exposure: No Use of substances other than those prescribed or required for medical reasons: No Advance Directives: No Advance Directives Information Provided: No service: Yes Current occupational status: retired Meds Allergies Allergy/AdvReac Type Severity Reaction Status Date / Time simvastatin [From ZOCOR] Allergy Mild MUSCLE Verified 03/02/20 11:00 CRAMPS, stomsach cramps Active Medications: Current Medications Generic Name Dose Route Start Last Admin Trade Name Freq PRN Reason Stop Dose Admin Pharmacy Consult 1 each 03/28/20 08:25 Consult Rx Perform Med Rec MISCELLANE ONCE PRN Consult order Home Medications Medication Instructions Recorded Confirmed Last Taken Type atorvastatin 1 tab PO DAILY 02/02/20 03/28/20 02/15/20 08:15 History gabapentin 1 cap PO BID 02/02/20 03/28/20 02/15/20 08:15 History ranolazine 1 tab PO BID 02/02/20 03/28/20 02/15/20 08:15 History tamsulosin 1 cap PO DAILY 02/02/20 03/28/20 02/15/20 13:45 History apixaban [Eliquis] 1 tab PO BID 03/23/20 03/28/20 Unknown History sacubitril-valsartan [Entresto] 1 tab PO BID 03/23/20 03/28/20 Unknown History sotalol 40 mg PO BID 03/23/20 03/28/20 Unknown History Physical Exam Vital Signs and Narrative: Vital Signs: Last Vital Signs Temp 98.6 F 03/28/20 13:20 Pulse 60 03/28/20 13:20 Resp 16 03/28/20 13:20 BP 141/64 H 03/28/20 13:20 Pulse Ox 93 03/28/20 13:20 Body Mass Index 26.4 Const: Nutritional Appearance: well nourished Orientation/consciousness: patient oriented x3 HENMT: Head: Yes normocephalic and Yes atraumatic Eyes: Sclerae: sclerae normal Chest: Chest palpation & inspection: normal inspection of the chest Resp: Effort & Inspection: normal respiratory effort and no respiratory distress Cardio: Rate: regular rate Rhythm: regular rhythm GI: Palpation (GI): Soft to palpation and nontender Skin: General skin exam: no rashes or lesions noted Neuro: General: patient oriented x3 Cranial nerves: Yes CN's II-XII intact bilaterally and Yes Bilaterally intact EOM present Extrem: General: Yes normal to inspection Results Labs CBC and Chem 7: 03/28/20 08:55 03/28/20 08:55 Labs: Laboratory Results - last 24 hr 03/28/20 03/28/20 03/28/20 08:55 08:55 08:55 MCV 84.5 MCH 26.9 L MCHC 31.8 RDW 16.3 H Plt Count 243 MPV 11.3 Immature Gran % (Auto) 0.7 H Neut % (Auto) 88.1 H Lymph % (Auto) 4.9 L Roberts % (Auto) 6.1 Eos % (Auto) 0.0 Baso % (Auto) 0.2 Lymph # (Auto) 0.6 L Roberts # (Auto) 0.8 Eos # (Auto) 0.0 Baso # (Auto) 0.0 Abs Immat Gran (auto) 0.09 H Absolute Neuts (auto) 11.2 H Absolute Nucleated RBC 0.000 Nucleated RBC % (auto) 0.0 Smear Tech's Comments VERIFIED PT INR APTT D-Dimer VBG pH VBG pCO2 VBG pO2 VBG HCO3 VBG O2 Saturation VBG Base Excess Anion Gap 15 Estim Creat Clear Calc 51.3 Estimated GFR > 60 Random Glucose 94 Lactic Acid Lactic Acid Fup @ 2Hr Calcium 9.5 D Magnesium 2.8 H Ferritin 89 Total Bilirubin 0.9 Direct Bilirubin 0.3 AST 25 ALT 21 Alkaline Phosphatase 84 Lactate Dehydrogenase 330 H Troponin I High Sens 5.8 C-Reactive Protein 1.03 H B-Natriuretic Peptide 348 H Total Protein 7.5 Albumin 4.2 Procalcitonin 03/28/20 03/28/20 03/28/20 08:55 08:55 09:11 MCV MCH MCHC RDW Plt Count MPV Immature Gran % (Auto) Neut % (Auto) Lymph % (Auto) Roberts % (Auto) Eos % (Auto) Baso % (Auto) Lymph # (Auto) Roberts # (Auto) Eos # (Auto) Baso # (Auto) Abs Immat Gran (auto) Absolute Neuts (auto) Absolute Nucleated RBC Nucleated RBC % (auto) Smear Tech's Comments PT INR APTT D-Dimer VBG pH 7.46 H VBG pCO2 32 VBG pO2 136 VBG HCO3 23 VBG O2 Saturation 99.0 VBG Base Excess 0.3 Anion Gap Estim Creat Clear Calc Estimated GFR Random Glucose Lactic Acid 2.2 H* Lactic Acid Fup @ 2Hr Calcium Magnesium Ferritin Total Bilirubin Direct Bilirubin AST ALT Alkaline Phosphatase Lactate Dehydrogenase Troponin I High Sens C-Reactive Protein B-Natriuretic Peptide Total Protein Albumin Procalcitonin 0.03 02/14/21 02/14/21 09:49 11:44 MCV MCH MCHC RDW Plt Count MPV Immature Gran % (Auto) Neut % (Auto) Lymph % (Auto) Roberts % (Auto) Eos % (Auto) Baso % (Auto) Lymph # (Auto) Roberts # (Auto) Eos # (Auto) Baso # (Auto) Abs Immat Gran (auto) Absolute Neuts (auto) Absolute Nucleated RBC Nucleated RBC % (auto) Smear Tech's Comments PT 16.3 H INR 1.4 H APTT 31.3 D-Dimer 319 VBG pH VBG pCO2 VBG pO2 VBG HCO3 VBG O2 Saturation VBG Base Excess Anion Gap Estim Creat Clear Calc Estimated GFR Random Glucose Lactic Acid Lactic Acid Fup @ 2Hr 1.6 Calcium Magnesium Ferritin Total Bilirubin Direct Bilirubin AST ALT Alkaline Phosphatase Lactate Dehydrogenase Troponin I High Sens C-Reactive Protein B-Natriuretic Peptide Total Protein Albumin Procalcitonin Imaging Radiologist's Impressions: Impressions Chest X-Ray 03/28/20 08:26 IMPRESSION: Questionable patchy lower lung airspace opacities versus artifact/summation shadow. Please note that portable radiographs are insensitive for mild pneumonitis. Chest CTA 03/28/20 10:10 IMPRESSION: * No evidence of pulmonary embolism. * New bilateral lower lung groundglass and patchy airspace opacities are in a pattern classic for COVID pneumonitis, mild to moderate. * Cardiomegaly and triple vessel coronary calcifications. VTE: negative Assessment and Plan (1) Hypoxia: Status: Acute (2) COVID-19: Status: Acute This is an 84 year old male with a history of afib, HCF, CAD, PUD, gERD, and recent diagnosis of covid 19 who presented to the ED with increasing shortness of breath. Acute respiratory failure with hypoxia Pneumonia secondary to COVID 19 -IV deamethasone -Supplemental oxygen prn atrial fibrillation continue sotalol, Eliquis CAD chest pain with cough only continue statin, ranolazine HFrEF Continue entresto BPH continue tamsulosin thyroid dz continue methimazole HLD continue statin PUD continue omeprazole DVT ppx - eliquis code status - full code This case was discussed with Dr. Banegas
[2020-03-28 17:10] LABS: Glucose Urine UA NEG (NEG); Leukocyte Esterase Urine NEG (NEG); Nitrite Urine NEG (NEG); PH 6.5 (5.0-8.0); Urine Blood NEG (NEG); Urine Ketones NEG (NEG); Urine Protein NEG (NEG-TRACE)
[2020-03-28 17:13] LABS: Appearance Urine CLEAR; Color Urine YELLOW
[2020-03-28] MEDS: Ranolazine 500 MG TAB.ER.12H PO (23:16)
[2020-03-28] MEDS: Apixaban 5 MG TABLET PO (23:17)
[2020-03-28] MEDS: Gabapentin 100 MG CAPSULE PO (23:17)
[2020-03-28] MEDS: Sotalol HCL 80 MG TABLET 40 MG PO (23:17)
[2020-03-28] MEDS: 0.9 % Sodium Chloride Flush 3 ML SYRINGE IVFLUSH (23:17)
[2020-03-28] MEDS: Sacubitril/Valsartan 24/26 1 TAB TABLET PO (23:17)
[2020-03-29] VITALS (15 sets, daily range): BP systolic 93–186; BP diastolic 45–78; PULSE 60–71; RESP 14–30; TEMP 36.6–37.2; O2SAT 91–96; BMI 25.6
[2020-03-29] MEDS: 0.9 % Sodium Chloride Flush 3 ML SYRINGE IVFLUSH ×4 (00:27→22:25)
[2020-03-29] MEDS: Omeprazole 20 MG CAPSULE.DR PO ×2 (06:50→16:11)
--- NOTE | 2020-03-29 08:17 | PC.NURSE ---
pt has fine crackles throughout right lung and diminished breath sounds in upper lobes bilaterally. states that he experiences chronic substernal pain with respirations which he states might be from his coughing. states that when he is at rest (not coughing) his chest is just sore.
[2020-03-29 08:23] LABS: MANUAL DIFF FLAG NO
[2020-03-29 08:36] LABS: Hemoglobin 13.3 g/dl (14.0-18.0); Mean Corpuscular Volume 83.7 fL (80-98)
[2020-03-29 08:37] LABS: Basophils Percent Auto 0.1 % (0-2); Imm Gran Abs Auto 0.13 X10*3/uL (0.00-0.03); Imm Gran Pct Auto 0.8 % (0.0-0.4); Lymphocytes Absolute Auto 0.8 X10*3/uL (1.2-4.9); Lymphocytes Percent Auto 4.9 % (20-40); Mean Corpuscular HGB Conc 32.4 g/dl (31.0-36.0); Mean Corpuscular Hemoglobin 27.1 pg (27.0-33.0); Mean Platelet Volume 11.1 fL (9.4-12.4); Monocytes Percent Auto 6.3 % (2-11); Neutrophils Percent Auto 87.9 % (45-73); Platelet Count 333 X10*3/uL (160-400); Red Cell Distribution Width 16.5 % (11.0-16.0)
[2020-03-29 08:49] LABS: Anion Gap 14 (12-20); Blood Urea Nitrogen 25 mg/dL (9-16); Calcium 9.3 mg/dL (8.4-10.2); Carbon Dioxide 27 mmol/L (22-29); Chloride 99 mmol/L (96-108); Creatinine Clr Calc Pharmacy 51.8; Estimated Glomerular Filt Rate > 60; Glucose Random 92 mg/dL (60-115); Potassium 4.9 mmol/L (3.3-5.1); Sodium 135 mmol/L (135-145)
[2020-03-29] MEDS: Sotalol HCL 80 MG TABLET 40 MG PO ×2 (08:55→22:04)
[2020-03-29] MEDS: Tamsulosin HCL 0.4 MG CAPSULE PO (08:58)
[2020-03-29] MEDS: Atorvastatin Calcium 20 MG TABLET PO (08:58)
[2020-03-29] MEDS: Sacubitril/Valsartan 24/26 1 TAB TABLET PO ×2 (08:58→22:05)
[2020-03-29] MEDS: Apixaban 5 MG TABLET PO ×2 (08:58→22:05)
[2020-03-29] MEDS: Gabapentin 100 MG CAPSULE PO ×2 (08:58→22:05)
--- NOTE | 2020-03-29 09:02 | PC.NURSE ---
pt started desatting to lower 80's, respiratory at bedside. increased high flow oxygen to 75% and 60L/min. pt respiratory effort decreased, patient resuming breakfast. md rogers
[2020-03-29] MEDS: Ranolazine 500 MG TAB.ER.12H PO ×2 (09:51→22:25)
[2020-03-29] MEDS: methIMAzole 10 MG TABLET PO (09:51)
--- NOTE | 2020-03-29 09:59 | PC.NURSE ---
pt's son dimple ([phone]) [place] [facility] [place] pt status. pt 02 at present is 97-98% on 75% of high flow 02 , fio2 60%. pt seen by hosp and is aware of plan of care for admission to hosp.
--- NOTE | 2020-03-29 11:50 | PC.NURSE ---
repositioned to left side lying. no breakdown or blanchable areas on buttocks. ls coarse through bases. spking full sentences. axox3. up to standing for urination. desats to 83% with increased work of breathing.
--- NOTE | 2020-03-29 11:54 | P.PNIM_ITS ---
Subjective Subjective Date of Service: 03/29/20 Interval History: the patient was seen and evaluated this morning Laying in bed, feels more tired and lethargic Increased oxygen requirement to high-flow overnight Denies any fever, chills but noticed increase shortness of breath No reported other overnight events. Systemic review: No fever, chills or weakness No chest pain, palpitation Increase shortness of breath or coughing No abdominal pain, nausea or vomiting No urinary symptoms No any rash or wounds Physical Exam Vital Signs: Vital Signs: Last Vital Signs Temp 99.0 F 03/29/20 11:43 Pulse 60 03/29/20 11:43 Resp 14 03/29/20 11:43 BP 111/45 L 03/29/20 11:43 Pulse Ox 92 03/29/20 11:43 Body Mass Index 26.4 Const: Other: Constitutional : Alert, oriented, in mild respiratory distress Neck : Normal inspection, Supple Cardiovascular : RRR, S1 S2, no lower extremity edema Respiratory : Decrease bilateral air entry, increased oxygen requirement to h igh-flow Gastrointestinal: soft, lax, Normal bowel sounds, Non tender Skin : Warm/Dry, No rash Neurological : Alert & oriented x3, No focal deficit Objective Data Current Medications Generic Name Dose Route Start Last Admin Trade Name Freq PRN Reason Stop Dose Admin Acetaminophen 650 mg 03/28/20 22:39 Acetaminophen 325 Mg Tablet PO Q6H PRN Pain, Mild (Pain Scale 1-3) Apixaban 5 mg 03/28/20 22:39 03/29/20 08:58 Apixaban 5 Mg Tablet PO 5 mg BID MON[place]ERRAT Administration Atorvastatin Calcium 20 mg 03/29/20 09:00 03/29/20 08:58 Atorvastatin Calcium 20 Mg Tablet PO 20 mg DAILY [place] Administration Dexamethasone Sodium Phosphate 6 mg 03/29/20 09:00 03/29/20 08:52 Dexamethasone Sod Phosphate/Pf 10 Mg/Ml Vial IVPUSH 6 mg DAILY [place] Administration Docusate Sodium 100 mg 03/28/20 22:39 Docusate Sodium 100 Mg Capsule PO DAILY PRN Constipation Gabapentin 100 mg 03/28/20 22:39 03/29/20 08:58 Gabapentin 100 Mg Capsule PO 100 mg BID [place] Administration Methimazole 10 mg 03/29/20 09:00 03/29/20 09:51 Methimazole 10 Mg Tablet PO 10 mg DAILY [place] Administration Omeprazole 20 mg 03/29/20 06:30 03/29/20 06:50 Omeprazole 20 Mg Capsule. PO 20 mg BID@0679,4240 [place]AT Administration Ondansetron HCl 4 mg 03/28/20 22:39 Ondansetron Hcl 4 Mg/2 Ml Vial IVPUSH Q8H PRN Nausea and Vomiting Pharmacy Consult 1 each 03/28/20 08:25 Consult Rx Perform Med Rec MISCELLANE ONCE PRN Consult order Ranolazine 500 mg 03/28/20 22:39 03/29/20 09:51 Ranolazine 500 Mg Tab.Er.12h PO 500 mg BID [place]ERRAT Administration Sacubitril/Valsartan 1 tab 03/28/20 22:39 03/29/20 08:58 Sacubitril/Valsartan 1 Tab Tablet PO 1 tab BID [place] Administration Protocol Sodium Chloride 3 ml 03/28/20 22:39 03/29/20 09:00 0.9 % Sodium Chloride Flush 3 Ml Syringe IVFLUSH 3 ml QSHIFT [place] Administration Sotalol HCl 40 mg 03/28/20 22:39 03/29/20 08:55 Sotalol Hcl 80 Mg Tablet PO 40 mg BID [place] Administration Tamsulosin HCl 0.4 mg 03/29/20 09:00 03/29/20 08:58 Tamsulosin Hcl 0.4 Mg Capsule PO 0.4 mg DAILY [place]ERRAT Administration Labs CBC & Chem 7: 03/29/20 06:47 03/29/20 06:47 Microbiology Microbiology Results: Microbiology 03/28/20 09:11 Blood - Venous Blood Culture - Preliminary No growth after 24 hours. 03/28/20 08:55 Blood - Venous Blood Culture - Preliminary No growth after 24 hours. Assessment and Plan (1) Hypoxia: Status: Acute (2) COVID-19: Status: Acute Assessment and Plan: This is an 84 year old male with a history of afib, HCF, CAD, PUD, gERD, and recent diagnosis of covid 19 who presented to the ED with increasing shortness of breath. Acute respiratory failure with hypoxia Pneumonia secondary to COVID 19 Increased oxygen requirement overnight Continue IV deamethasone Wean oxygen down as tolerated Not a candidate for remdesivir or plasma given more than week of symptoms atrial fibrillation continue sotalol, Eliquis CAD chest pain with cough only continue statin, ranolazine HFrEF Continue entresto BPH continue tamsulosin thyroid dz continue methimazole HLD continue statin PUD continue omeprazole DVT ppx - eliquis code status - full code This case was discussed with Dr. Banegas
--- NOTE | 2020-03-29 11:58 | W.MHC.ACPN ---
Advanced Care Planning Note Advanced Care Planning Note Discussed with: patient Time spent (in minutes): 18 Narrative: I had a chance to meet with the patient is here today to discuss current hospital stay and advanced directive. The patient was admitted yesterday for increased shortness of breath and lethargy. He was found to have COVID-19 infection. Images were consistent with the disease and he was noted to require oxygen as his saturation dropped to 80s on room air with exertion. He was started on oxygen supplement and steroid therapy. Overnight his oxygen requirement increased to high flow. We discussed current state of his disease and what to expect down the road. Upon discussing advanced directives the patient still wants to be a full code at this point and would like to be intubated if we get to level were other measures are not helping. Will continue current measures of treatment and monitor the patient on daily basis. With revisit the topic of of advanced directive again during the hospital stay. Problems Discussed (1) Hypoxia: (2) COVID-19:
--- NOTE | 2020-03-29 17:39 | PC.NURSE ---
pt reports feeling a little btter, able to take a deeper breath after spitting up a few big loogies repositioned to left side lying
--- NOTE | 2020-03-29 18:21 | PC.NURSE ---
repositioned to right side lying.
--- NOTE | 2020-03-29 18:22 | PC.NURSE ---
update to son via phone
--- NOTE | 2020-03-29 21:49 | PC.NURSE ---
rnto rn with rd
--- NOTE | 2020-03-29 22:30 | PC.RT ---
pt transported to [facility] from ED without incident. Transported on a NRB amd a surgiacal mask as pt is covid positive. pt placed bacl o hfnc once in his room on [facility]. rony well and no resp distress noted.
[2020-03-30] VITALS (13 sets, daily range): BP systolic 109–160; BP diastolic 55–71; PULSE 60–121; RESP 18–30; TEMP 36.6–37.6; O2SAT 89–94; BMI 25.6
[2020-03-30] MEDS: Omeprazole 20 MG CAPSULE.DR PO ×2 (06:00→18:28)
[2020-03-30 06:10] LABS: Hematocrit 40.7 % (42-52); Hemoglobin 13.3 g/dl (14.0-18.0); Mean Corpuscular HGB Conc 32.7 g/dl (31.0-36.0); Mean Corpuscular Volume 82.7 fL (80-98); Platelet Count 276 X10*3/uL (160-400); Red Blood Count 4.92 X10*6/uL (4.60-5.80); Red Cell Distribution Width 16.5 % (11.0-16.0); White Blood Count 16.8 X10*3/uL (4.8-10.8)
[2020-03-30] MEDS: 0.9 % Sodium Chloride Flush 3 ML SYRINGE IVFLUSH ×3 (07:52→19:23)
[2020-03-30] MEDS: Apixaban 5 MG TABLET PO ×2 (07:53→19:23)
[2020-03-30] MEDS: Atorvastatin Calcium 20 MG TABLET PO (07:53)
[2020-03-30] MEDS: Ranolazine 500 MG TAB.ER.12H PO ×2 (07:54→19:23)
[2020-03-30] MEDS: Gabapentin 100 MG CAPSULE PO ×2 (07:57→19:23)
[2020-03-30] MEDS: methIMAzole 10 MG TABLET PO (07:57)
[2020-03-30] MEDS: Sacubitril/Valsartan 24/26 1 TAB TABLET PO ×2 (07:58→19:23)
[2020-03-30] MEDS: Tamsulosin HCL 0.4 MG CAPSULE PO (07:58)
[2020-03-30] MEDS: Sotalol HCL 80 MG TABLET 40 MG PO ×2 (07:59→19:23)
[2020-03-30 09:17] LABS: Alanine Aminotransferase 22 U/L (0-40); Albumin Level 3.7 g/dL (3.5-5.0); Alkaline Phosphatase 74 U/L (39-117); Anion Gap 16 (12-20); Aspartate Amino Transferase 39 U/L (5-37); Bilirubin Total 1.1 mg/dL (0.0-1.0); Blood Urea Nitrogen 28 mg/dL (9-16); C Reactive Protein 3.97 mg/dL (< or = 0.50); Calcium 8.8 mg/dL (8.4-10.2); Carbon Dioxide 24 mmol/L (22-29); Chloride 100 mmol/L (96-108); Creatinine Clr Calc Pharmacy 49.7; Estimated Glomerular Filt Rate > 60; Glucose Random 75 mg/dL (60-115); Lactate Dehydrogenase 510 U/L (118-273); Potassium 4.7 mmol/L (3.3-5.1); Sodium 135 mmol/L (135-145); Total Protein 6.7 g/dL (6.5-8.0)
[2020-03-30] MEDS: guaiFEN/Codeine SF 200/20/10ML 10 ML LIQUID PO ×4 (10:47→23:32)
[2020-03-30] MEDS: Benzonatate 100 MG CAPSULE 200 MG PO ×3 (10:48→19:23)
[2020-03-30] MEDS: guaiFENesin LA 600 MG TAB.ER.12H PO ×2 (10:48→19:23)
--- NOTE | 2020-03-30 11:05 | MHC.CLN ---
RE: CONSULT RECOMMEND ADDING ENSURE AND LESLIE TO PROMOTE WOUND HEALING R/T PTS INCREASED NUTRITION RISK SEE ALSO CLINICAL NUTRITION ASSESSMENT
--- NOTE | 2020-03-30 11:14 | MHC.CM.PN ---
CM spoke with patient's son/HCP Stefan [phone] who reports patient lives with him, amb with a cane at times. Son helps with shopping/laundry and cleaning. Copy of HCP is on file. Discussed discharge plan, patient is active with [facility]. Discharge home with resumption of services from [facility]. Referral made via allscripts. Son will provide transportation. CM will continue to follow for discharge needs.
--- NOTE | 2020-03-30 15:31 | HO.PM.IMPN ---
Subjective Subjective Date of Service: 03/30/20 Interval History: the patient was seen and evaluated this morning Laying in bed, feels more tired and lethargic Increased oxygen requirement to high-flow , increase coughing episodes Denies any fever, chills but noticed increase shortness of breath No reported other overnight events. Systemic review: No fever, chills or weakness No chest pain, palpitation Increase shortness of breath and significant dry coughing No abdominal pain, nausea or vomiting No urinary symptoms No any rash or wounds Physical Exam Vital Signs: Vital Signs: Last Vital Signs Temp 97.9 F 03/30/20 11:17 Pulse 63 03/30/20 11:17 Resp 24 H 03/30/20 15:28 BP 155/68 H 03/30/20 11:17 Pulse Ox 89 L 03/30/20 11:17 Body Mass Index 25.6 Const: Other: Constitutional : Alert, oriented, in mild respiratory distress Neck : Normal inspection, Supple Cardiovascular : RRR, S1 S2, no lower extremity edema Respiratory : Decrease bilateral air entry, increased oxygen requirement to high-flow, in moderate distress Gastrointestinal: soft, lax, Normal bowel sounds, Non tender Skin : Warm/Dry, No rash Neurological : Alert & oriented x3, No focal deficit Objective Data Current Medications Generic Name Dose Route Start Last Admin Trade Name Freq PRN Reason Stop Dose Admin Acetaminophen 650 mg 03/28/20 22:39 Acetaminophen 325 Mg Tablet PO Q6H PRN Pain, Mild (Pain Scale 1-3) Apixaban 5 mg 03/28/20 22:39 03/30/20 07:53 Apixaban 5 Mg Tablet PO 5 mg BID [facility] Administration Atorvastatin Calcium 20 mg 03/29/20 09:00 03/30/20 07:53 Atorvastatin Calcium 20 Mg Tablet PO 20 mg DAILY [facility] Administration Benzonatate 200 mg 03/30/20 10:30 03/30/20 14:38 Benzonatate 100 Mg Capsule PO 200 mg TID [place] Administration Dexamethasone Sodium Phosphate 6 mg 03/29/20 09:00 03/30/20 10:47 Dexamethasone Sod Phosphate/Pf 10 Mg/Ml Vial IVPUSH 6 mg DAILY [facility] Administration Docusate Sodium 100 mg 03/28/20 22:39 Docusate Sodium 100 Mg Capsule PO DAILY PRN Constipation Gabapentin 100 mg 03/28/20 22:39 03/30/20 07:57 Gabapentin 100 Mg Capsule PO 100 mg BID [place] Administration Guaifenesin 600 mg 03/30/20 10:30 03/30/20 10:48 Guaifenesin La 600 Mg Tab.Er.12h PO 600 mg BID [facility] Administration Guaifenesin/Codeine Phosphate 10 ml 03/30/20 11:00 03/30/20 14:38 Guaifen/Codeine Sf 200/20/10ml 10 Ml Liquid PO 04/01/20 07:01 10 ml Q4H [place] Administration Methimazole 10 mg 03/29/20 09:00 03/30/20 07:57 Methimazole 10 Mg Tablet PO 10 mg DAILY [place] Administration Omeprazole 20 mg 03/29/20 06:30 03/30/20 06:00 Omeprazole 20 Mg Capsule. PO 20 mg BID@0630,1020 [facility] Administration Ondansetron HCl 4 mg 03/28/20 22:39 Ondansetron Hcl 4 Mg/2 Ml Vial IVPUSH Q8H PRN Nausea and Vomiting Pharmacy Consult 1 each 03/28/20 08:25 Consult Rx Perform Med Rec MISCELLANE ONCE PRN Consult order Ranolazine 500 mg 03/28/20 22:39 03/30/20 07:54 Ranolazine 500 Mg Tab.Er.12h PO 500 mg BID [facility] Administration Sacubitril/Valsartan 1 tab 03/28/20 22:39 03/30/20 07:58 Sacubitril/Valsartan 1 Tab Tablet PO 1 tab BID [facility] Administration Protocol Sodium Chloride 3 ml 03/28/20 22:39 03/30/20 07:52 0.9 % Sodium Chloride Flush 3 Ml Syringe IVFLUSH 3 ml QSHIFT [place] Administration Sotalol HCl 40 mg 03/28/20 22:39 03/30/20 07:59 Sotalol Hcl 80 Mg Tablet PO 40 mg BID [place] Administration Tamsulosin HCl 0.4 mg 03/29/20 09:00 03/30/20 07:58 Tamsulosin Hcl 0.4 Mg Capsule PO 0.4 mg DAILY [place] Administration Labs CBC & Chem 7: 03/30/20 05:25 03/30/20 08:01 Microbiology Microbiology Results: Microbiology 03/28/20 09:11 Blood - Venous Blood Culture - Preliminary No growth after 48 hours. 03/28/20 08:55 Blood - Venous Blood Culture - Preliminary No growth after 48 hours. Assessment and Plan (1) Hypoxia: Status: Acute (2) COVID-19: Status: Acute Assessment and Plan: This is an 84 year old male with a history of afib, HCF, CAD, PUD, gERD, and recent diagnosis of covid 19 who presented to the ED with increasing shortness of breath. Acute respiratory failure with hypoxia Pneumonia secondary to COVID 19 On high flow oxygen Continue IV deamethasone Wean oxygen down as tolerated Add cough medications Not a candidate for remdesivir or plasma given more than week of symptoms atrial fibrillation continue sotalol, Eliquis CAD chest pain with cough only continue statin, ranolazine HFrEF Continue entresto BPH continue tamsulosin thyroid dz continue methimazole HLD continue statin PUD continue omeprazole DVT ppx - eliquis code status - full code
[2020-03-31] VITALS (15 sets, daily range): BP systolic 102–168; BP diastolic 54–72; PULSE 52–130; RESP 18–25; TEMP 36.3–37.6; O2SAT 75–97
[2020-03-31] MEDS: guaiFEN/Codeine SF 200/20/10ML 10 ML LIQUID PO ×2 (03:20→22:52)
[2020-03-31] MEDS: Morphine Sulfate 2 MG/ML CARTRIDGE 1 MG IVPUSH (04:09)
--- NOTE | 2020-03-31 04:49 | MHC.PIE ---
Addendum entered by Annelise Farfan RN 03/31/20 06:03: Patient resting in bed, o2 sat dropping into the 70s. MD and respiratory aware. CXR ordered. ABGs ordered and drawn by respiratory. Patient o2 sat into the 70s when patient at rest. Patient easily arousable, o2 sat into the mid to high 80s when awake and actively deep breathing. ICU PA up to bedside to assess patient. Not accepting at this time, but will follow. Awaiting IV lasix order to be entered and acknowledged. Oncoming RN aware of sitatuation. Original Note: Throughout shift, patient with a persistent, dry, rough cough. Patient given multiple cough medications as ordered. Patient o2 sat dropping into the low 80s with exertion. Patient c/o SOB. Respiratory at bedside multiple times throughout shift. Patient placed on NRB, already on hi flow. MD made aware of fluctuating o2 sat. Pt medicated with 1mg IV morphine as ordered. Will monitor.
--- NOTE | 2020-03-31 06:08 | P.EN_ITS ---
Event Note Date of Service: 03/31/20 Event Note: Acute hypoxic respiratory failure: In the setting of COVID-19 inf ection. Patient maxed out on high-flow oxygen. Patient has been coughing-has been on cough suppressant. Also given a dose of morphine without any improvement in oxygenation. Spoke to the ICU attending. Blood gas and ABG has been ordered. Patient placed on CPAP. Per ICU attending patient will be monitored closely on the IMC for now.
[2020-03-31 06:10] LABS: ABG PCO2 31 mmHg (32-45); Base Excess ABG 0.9; HCO3 ABG 23 mmol/L (22-26); PO2 ABG 58 mmHg (83-108); Pt Ventilation O2% 100%; pH ABG 7.47 (7.35-7.45)
[2020-03-31] MEDS: Furosemide 20 MG/2 ML VIAL IVPUSH (06:33)
[2020-03-31] MEDS: Sacubitril/Valsartan 24/26 1 TAB TABLET PO ×2 (10:19→20:39)
[2020-03-31] MEDS: 0.9 % Sodium Chloride Flush 3 ML SYRINGE IVFLUSH ×3 (10:19→20:41)
[2020-03-31] MEDS: Omeprazole 20 MG CAPSULE.DR PO (10:19)
[2020-03-31] MEDS: Sotalol HCL 80 MG TABLET 40 MG PO ×2 (10:20→20:39)
[2020-03-31] MEDS: Benzonatate 100 MG CAPSULE 200 MG PO ×3 (10:20→20:39)
[2020-03-31] MEDS: Ranolazine 500 MG TAB.ER.12H PO ×2 (10:21→20:40)
[2020-03-31] MEDS: Tamsulosin HCL 0.4 MG CAPSULE PO (10:21)
[2020-03-31] MEDS: Apixaban 5 MG TABLET PO ×2 (10:21→20:37)
[2020-03-31] MEDS: Gabapentin 100 MG CAPSULE PO ×2 (10:21→20:40)
[2020-03-31] MEDS: methIMAzole 10 MG TABLET PO (10:21)
[2020-03-31] MEDS: guaiFENesin LA 600 MG TAB.ER.12H PO ×2 (10:21→20:40)
[2020-03-31] MEDS: Atorvastatin Calcium 20 MG TABLET PO (10:21)
--- NOTE | 2020-03-31 11:37 | HO.PM.IMPN ---
Subjective Subjective Date of Service: 03/31/20 Interval History: the patient was seen and evaluated this morning Laying in bed, feels more tired and lethargic Increased oxygen requirement to high-flow , Started on NRB overnight as well Improved coughing episodes Denies any fever, chills but noticed increase shortness of breath No reported other overnight events. Systemic review: No fever, chills or weakness No chest pain, palpitation Increase shortness of breath and significant dry coughing No abdominal pain, nausea or vomiting No urinary symptoms No any rash or wounds Physical Exam Vital Signs: Vital Signs: Last Vital Signs Temp 99.6 F 03/31/20 07:18 Pulse 72 03/31/20 10:20 Resp 25 H 03/31/20 07:18 BP 119/57 L 03/31/20 10:20 Pulse Ox 91 L 03/31/20 07:18 Body Mass Index 25.6 Const: Other: Constitutional : Alert, oriented, in mild respiratory distress Neck : Normal inspection, Supple Cardiovascular : RRR, S1 S2, no lower extremity edema Respiratory : Decrease bilateral air entry, increased oxygen requirement to high-flow, in moderate distress Gastrointestinal: soft, lax, Normal bowel sounds, Non tender Skin : Warm/Dry, No rash Neurological : Alert & oriented x3, No focal deficit Objective Data Current Medications Generic Name Dose Route Start Last Admin Trade Name Freq PRN Reason Stop Dose Admin Acetaminophen 650 mg 03/28/20 22:39 Acetaminophen 325 Mg Tablet PO Q6H PRN Pain, Mild (Pain Scale 1-3) Apixaban 5 mg 03/28/20 22:39 03/31/20 10:21 Apixaban 5 Mg Tablet PO 5 mg BID [place] Administration Atorvastatin Calcium 20 mg 03/29/20 09:00 03/31/20 10:21 Atorvastatin Calcium 20 Mg Tablet PO 20 mg DAILY [place] Administration Benzonatate 200 mg 03/30/20 10:30 03/31/20 10:20 Benzonatate 100 Mg Capsule PO 200 mg TID [place] Administration Dexamethasone Sodium Phosphate 6 mg 03/29/20 09:00 03/31/20 10:18 Dexamethasone Sod Phosphate/Pf 10 Mg/Ml Vial IVPUSH 6 mg DAILY [place] Administration Docusate Sodium 100 mg 03/28/20 22:39 Docusate Sodium 100 Mg Capsule PO DAILY PRN Constipation Gabapentin 100 mg 03/28/20 22:39 03/31/20 10:21 Gabapentin 100 Mg Capsule PO 100 mg BID [place] Administration Guaifenesin 600 mg 03/30/20 10:30 03/31/20 10:21 Guaifenesin La 600 Mg Tab.Er.12h PO 600 mg BID [place] Administration Guaifenesin/Codeine Phosphate 10 ml 03/30/20 11:00 03/31/20 10:21 Guaifen/Codeine Sf 200/20/10ml 10 Ml Liquid PO 04/01/20 07:01 10 ml Q4H [place] Administration Methimazole 10 mg 03/29/20 09:00 03/31/20 10:21 Methimazole 10 Mg Tablet PO 10 mg DAILY [place] Administration Omeprazole 20 mg 03/29/20 06:30 03/31/20 10:19 Omeprazole 20 Mg Capsule.Dr PO 20 mg BID@0630,1630 [place] Administration Ondansetron HCl 4 mg 03/28/20 22:39 Ondansetron Hcl 4 Mg/2 Ml Vial IVPUSH Q8H PRN Nausea and Vomiting Pharmacy Consult 1 each 03/28/20 08:25 Consult Rx Perform Med Rec MISCELLANE ONCE PRN Consult order Ranolazine 500 mg 03/28/20 22:39 03/31/20 10:21 Ranolazine 500 Mg Tab.Er.12h PO 500 mg BID [place] Administration Sacubitril/Valsartan 1 tab 03/28/20 22:39 03/31/20 10:19 Sacubitril/Valsartan 24/ 1 Tab Tablet PO 1 tab BID [place] Administration Protocol Sodium Chloride 3 ml 03/28/20 22:39 03/31/20 10:19 0.9 % Sodium Chloride Flush 3 Ml Syringe IVFLUSH 3 ml QSHIFT [place] Administration Sotalol HCl 40 mg 03/28/20 22:39 03/31/20 10:20 Sotalol Hcl 80 Mg Tablet PO 40 mg BID [place] Administration Tamsulosin HCl 0.4 mg 03/29/20 09:00 03/31/20 10:21 Tamsulosin Hcl 0.4 Mg Capsule PO 0.4 mg DAILY [facility] Administration Labs CBC & Chem 7: 03/30/20 05:25 03/30/20 08:01 Microbiology Microbiology Results: Microbiology 03/28/20 09:11 Blood - Venous Blood Culture - Preliminary No growth after 48 hours. 02/14/21 08:55 Blood - Venous Blood Culture - Preliminary No growth after 48 hours. Assessment and Plan (1) Hypoxia: Status: Acute (2) COVID-19: Status: Acute Assessment and Plan: This is an 84 year old male with a history of afib, HCF, CAD, PUD, gERD, and recent diagnosis of covid 19 who presented to the ED with increasing shortness of breath. Acute respiratory failure with hypoxia Pneumonia secondary to COVID 19 On high flow oxygen and NRB Continue IV deamethasone D4/10 Wean oxygen down as tolerated cough medications Not a candidate for remdesivir or plasma given more than week of symptoms atrial fibrillation continue sotalol, Eliquis CAD chest pain with cough only continue statin, ranolazine HFrEF Continue entresto BPH continue tamsulosin thyroid dz continue methimazole HLD continue statin PUD continue omeprazole DVT ppx - eliquis code status - full code, to readdress
--- NOTE | 2020-03-31 12:49 | MHC.CM.PN ---
Patient continues on IV Dexamethasone for +COVID on 03/23. Requiring 60 liters high flow O2 with a FIO2 of 100% NRB mask and CPAP intermittently. Patient's discharge plan is home with resumption of [facility] services. Robby Aviles will provide transport. CM will continue to follow patient for discharge needs.
--- NOTE | 2020-03-31 13:18 | P.ACPN_ITS ---
Advanced Care Planning Note Advanced Care Planning Note Discussed with: patient and family member(s) Time spent (in minutes): 19 Narrative: I had a chance to meet with the patient and call his son Feliciano MCKEON to discuss current hospital stay and advanced directive. The patient admitted to the hospital for treatment of hypoxemia as a result of Covid 19 infection. He has been steadily requiring more oxygen supplement since admission time and is requiring High flow and NRB to keep his sats around 90s. I explained to the patient and son the ongoing medical issues and discussed with both of them separately goals of care. Up to this point the patient still interested in intubation as a last resort for treatment if he continues to deteriorate and O2 requirement increases. His son seems more realistic about the chances of recovery after intubation but will con tinue to treat for the time being and keep the patient as full code. Will revisit the topic and have further discussions during the hospital stay. Problems Discussed (1) Hypoxia: (2) COVID-19:
--- NOTE | 2020-03-31 18:33 | PC.NURSE ---
Pt proned at 1400 with good effect. SaO2 up to 99% at times, 92-96%. Pt repo'd to side laying at 1700.
[2020-04-01] VITALS (13 sets, daily range): BP systolic 100–112; BP diastolic 51–57; PULSE 56–148; RESP 18–24; TEMP 36.3–37; O2SAT 88–93
[2020-04-01] MEDS: guaiFEN/Codeine SF 200/20/10ML 10 ML LIQUID PO ×2 (03:14→05:46)
[2020-04-01] MEDS: Omeprazole 20 MG CAPSULE.DR PO ×2 (05:47→14:32)
[2020-04-01 06:06] LABS: Hematocrit 37.6 % (42-52); Hemoglobin 12.4 g/dl (14.0-18.0); Mean Corpuscular Volume 81.7 fL (80-98); Mean Platelet Volume 10.9 fL (9.4-12.4); Platelet Count 228 X10*3/uL (160-400); Red Cell Distribution Width 15.9 % (11.0-16.0); White Blood Count 12.3 X10*3/uL (4.8-10.8)
[2020-04-01 06:30] LABS: Anion Gap 18 (12-20); Blood Urea Nitrogen 40 mg/dL (9-16); C Reactive Protein 11.24 mg/dL (< or = 0.50); Calcium 7.9 mg/dL (8.4-10.2); Carbon Dioxide 21 mmol/L (22-29); Chloride 100 mmol/L (96-108); Creatinine Clr Calc Pharmacy 45.1; Estimated Glomerular Filt Rate > 60; Glucose Random 125 mg/dL (60-115); Lactate Dehydrogenase 454 U/L (118-273); Potassium 4.6 mmol/L (3.3-5.1); Sodium 134 mmol/L (135-145)
[2020-04-01] MEDS: 0.9 % Sodium Chloride Flush 3 ML SYRINGE IVFLUSH ×3 (08:55→20:27)
[2020-04-01] MEDS: Sotalol HCL 80 MG TABLET 40 MG PO ×2 (08:57→20:26)
[2020-04-01] MEDS: Atorvastatin Calcium 20 MG TABLET PO (08:58)
[2020-04-01] MEDS: Apixaban 5 MG TABLET PO ×2 (08:59→20:26)
[2020-04-01] MEDS: guaiFENesin LA 600 MG TAB.ER.12H PO ×2 (08:59→20:26)
[2020-04-01] MEDS: Ranolazine 500 MG TAB.ER.12H PO ×2 (08:59→20:25)
[2020-04-01] MEDS: methIMAzole 10 MG TABLET PO (08:59)
[2020-04-01] MEDS: Sacubitril/Valsartan 24/26 1 TAB TABLET PO ×2 (08:59→20:27)
[2020-04-01] MEDS: Gabapentin 100 MG CAPSULE PO ×2 (09:00→20:27)
[2020-04-01] MEDS: Tamsulosin HCL 0.4 MG CAPSULE PO (09:00)
[2020-04-01] MEDS: Benzonatate 100 MG CAPSULE 200 MG PO ×3 (09:00→20:26)
--- NOTE | 2020-04-01 11:40 | P.CNUR_ITS ---
History of Present Illness Consult details Consult date: 04/01/20 Narrative: Yousuf is a pleasant 84-year-old male Asked to see patient regarding BPH and urinary retention Patricio catheter in place Admitted to hospital for shortness of breath and question of COVID Denies prior issues with urination until admission States that he had a combination of constipation and retention and he thinks the constipation contributed Note uncertain as to volume of urine obtained on catheterization Would suggest leave catheter for 3 days then perform voiding trial [facility] Past Medical History Medical History Afib CAD (coronary artery disease) CHF (congestive heart failure) CKD (chronic kidney disease) Colon polyps Coronary artery disease involving coronary bypass graft Duodenal ulcer GERD (gastroesophageal reflux disease) Hiatal hernia Hyperlipidemia Hypertension IBS (irritable bowel syndrome) Ischemic cardiomyopathy Left bundle-branch block, unspecified Neuropathy Nonalcoholic fatty liver disease Family History Family History Mother Heart disease Father Myocardial infarction Surgical History Surgical History History of tonsillectomy Hx of CABG Social History Social History Household Members: Children Household Members Other:: 2 sons Housing: House Do you presently have visiting nurse or other home services: Yes Alcohol intake: never Smoking Status: Former smoker Smoked in Last 30 Days: No Second Hand Smoke Exposure: No Use of substances other than those prescribed or required for medical reasons: No Currently Displaying Signs/Symptoms of Drug Intoxication Withdrawal: No Have you been hit, kicked, punched, or otherwise hurt by someone within the past year? If so, by whom?: No Do you feel safe in your current relationship?: Yes Is there a partner from a previous relationship who is making you feel unsafe now?: No Are you made to feel afraid or neglected: No Advance Directives: No Advance Directives Information Provided: No Do you have thoughts of harming others: None Do you have a plan to hurt others: No Plan Recently lost weight without trying: No service: Yes Current occupational status: retired Meds Allergies Allergy/AdvReac Type Severity Reaction Status Date / Time simvastatin [From ZOCOR] Allergy Mild MUSCLE Verified 03/02/20 11:00 CRAMPS, stomsach cramps Active Medications: Current Medications Generic Name Dose Route Start Last Admin Trade Name Anand PRN Reason Stop Dose Admin Acetaminophen 650 mg 03/28/20 22:39 Acetaminophen 325 Mg Tablet PO Q6H PRN Pain, Mild (Pain Scale 1-3) Apixaban 5 mg 03/28/20 22:39 04/01/20 08:59 Apixaban 5 Mg Tablet PO 5 mg BID [place] Administration Atorvastatin Calcium 20 mg 03/29/20 09:00 04/01/20 08:58 Atorvastatin Calcium 20 Mg Tablet PO 20 mg DAILY [place] Administration Benzonatate 200 mg 03/30/20 10:30 04/01/20 09:00 Benzonatate 100 Mg Capsule PO 200 mg TID [place] Administration Dexamethasone Sodium Phosphate 6 mg 03/29/20 09:00 04/01/20 08:55 Dexamethasone Sod Phosphate/Pf 10 Mg/Ml Vial IVPUSH 6 mg DAILY [place] Administration Docusate Sodium 100 mg 03/28/20 22:39 Docusate Sodium 100 Mg Capsule PO DAILY PRN Constipation Gabapentin 100 mg 03/28/20 22:39 04/01/20 09:00 Gabapentin 100 Mg Capsule PO 100 mg BID [place] Administration Guaifenesin 600 mg 03/30/20 10:30 04/01/20 08:59 Guaifenesin La 600 Mg Tab.Er.12h PO 600 mg BID [place] Administration Methimazole 10 mg 03/29/20 09:00 04/01/20 08:59 Methimazole 10 Mg Tablet PO 10 mg DAILY [place] Administration Omeprazole 20 mg 03/29/20 06:30 04/01/20 05:47 Omeprazole 20 Mg Capsule.Dr PO 20 mg BID@1490,9670 [place] Administration Ondansetron HCl 4 mg 03/28/20 22:39 Ondansetron Hcl 4 Mg/2 Ml Vial IVPUSH Q8H PRN Nausea and Vomiting Pharmacy Consult 1 each 03/28/20 08:25 Consult Rx Perform Med Rec MISCELLANE ONCE PRN Consult order Ranolazine 500 mg 03/28/20 22:39 04/01/20 08:59 Ranolazine 500 Mg Tab.Er.12h PO 500 mg BID [place] Administration Sacubitril/Valsartan 1 tab 03/28/20 22:39 04/01/20 08:59 Sacubitril/Valsartan 1 Tab Tablet PO 1 tab BID [facility] Administration Protocol Sodium Chloride 3 ml 03/28/20 22:39 04/01/20 08:55 0.9 % Sodium Chloride Flush 3 Ml Syringe IVFLUSH 3 ml QSHIFT [place] Administration Sotalol HCl 40 mg 03/28/20 22:39 04/01/20 08:57 Sotalol Hcl 80 Mg Tablet PO 40 mg BID [place] Administration Tamsulosin HCl 0.4 mg 03/29/20 09:00 04/01/20 09:00 Tamsulosin Hcl 0.4 Mg Capsule PO 0.4 mg DAILY [place] Administration Home Medications Medication Instructions Recorded Confirmed Last Taken Type atorvastatin 1 tab PO DAILY 02/02/20 03/28/20 02/15/20 08:15 History gabapentin 1 cap PO BID 02/02/20 03/28/20 02/15/20 08:15 History ranolazine 1 tab PO BID 02/02/20 03/28/20 02/15/20 08:15 History tamsulosin 1 cap PO DAILY 02/02/20 03/28/20 02/15/20 13:45 History apixaban [Eliquis] 1 tab PO BID 03/23/20 03/28/20 Unknown History sacubitril-valsartan [Entresto] 1 tab PO BID 03/23/20 03/28/20 Unknown History sotalol 40 mg PO BID 03/23/20 03/28/20 Unknown History Physical Exam Vital Signs: Vital Signs: Last Vital Signs Temp 98.2 F 04/01/20 11:36 Pulse 60 04/01/20 11:36 Resp 04/01/20 11:36 BP 101/51 L 04/01/20 11:36 Pulse Ox 90 L 04/01/20 11:36 Body Mass Index 25.6 Const: General: cooperative, healthy appearing, comfortable and no acute distress Nutritional Appearance: average body habitus Orie ntation/consciousness: oriented to person, oriented to place and oriented to time Eyes: General: appearance normal, both eyes and all related structures Chest: Chest palpation & inspection: normal inspection of the chest Resp: Effort & Inspection: normal respiratory effort Cardio: Rate: regular rate GI: Inspection: Yes normal to inspection Skin: Hair: normal Neuro: General: oriented to person, oriented to place and oriented to time Extrem: General: Yes normal to inspection Results Labs Result diagrams: 04/02/20 05:48 04/02/20 05:48 Labs: Abnormal lab results 04/01/20 04/01/20 Range/Units 05:24 05:24 WBC 12.3 H (4.8-10.8) X10*3/uL Hgb 12.4 L (14.0-18.0) g/dl Hct 37.6 L (42-52) % Sodium 134 L (135-145) mmol/L Carbon Dioxide 21 L (22-29) mmol/L BUN 40 H (9-16) mg/dL Random Glucose 125 H D (60-115) mg/dL Calcium 7.9 L D (8.4-10.2) mg/dL Lactate Dehydrogenase 454 H (118-273) U/L C-Reactive Protein 11.24 H (< or = 0.50) mg/dL Short CBC 04/01/20 Range/Units 05:24 WBC 12.3 H (4.8-10.8) X10*3/uL Hgb 12.4 L (14.0-18.0) g/dl Hct 37.6 L (42-52) % Plt Count 228 (160-400) X10*3/uL BMP 04/01/20 05:24 Sodium 134 L Potassium 4.6 Chloride 100 Carbon Dioxide 21 L BUN 40 H Creatinine 1.08 Calcium 7.9 L D Urine 03/28/20 Range/Units 16:55 Urine Color YELLOW Urine Appearance CLEAR Urine pH 6.5 (5.0-8.0) Ur Specific [place] 1.010 (1.005-1.025) Urine Protein NEG (NEG-TRACE) MG/DL Urine Glucose (UA) NEG (NEG) MG/DL All other labs normal. Assessment and Plan (1) BPH w urinary obs/LUTS: Status: Acute (2) Urinary retention: Status: Acute Voiding trial 72 hours after Patricio catheter placement
--- NOTE | 2020-04-01 13:11 | HO.PM.IMPN ---
Subjective Subjective Date of Service: 04/01/20 Interval History: the patient was seen and evaluated this morning Laying in bed, feels more tired and lethargic Increased oxygen requirement to high-flow , NRB with sats around 90% He looks comfortable though and not in much distress Improved coughing episodes Denies any fever, chills but noticed increase shortness of breath No reported other overnight events. Systemic review: No fever, chills or weakness No chest pain, palpitation Increase oxygen requirement, in mild respiratory distress No abdominal pain, nausea or vomiting No urinary symptoms No any rash or wounds Physical Exam Vital Signs: Vital Signs: Last Vital Signs Temp 98.2 F 04/01/20 11:36 Pulse 60 04/01/20 11:36 Resp 20 04/01/20 11:54 BP 101/51 L 04/01/20 11:36 Pulse Ox 90 L 04/01/20 11:36 Body Mass Index 25.6 Const: Other: Constitutional : Alert, oriented, in mild respiratory distress Neck : Normal inspection, Supple Cardiovascular : RRR, S1 S2, no lower extremity edema Respiratory : Decrease bilateral air entry, increased oxygen requirement to high-flow, in respiratory distress Gastrointestinal: soft, lax, Normal bowel sounds, Non tender Skin : Warm/Dry, No rash Neurological : Alert & oriented x3, No focal deficit Objective Data Current Medications Generic Name Dose Route Start Last Admin Trade Name Freq PRN Reason Stop Dose Admin Acetaminophen 650 mg 03/28/20 22:39 Acetaminophen 325 Mg Tablet PO Q6H PRN Pain, Mild (Pain Scale 1-3) Apixaban 5 mg 03/28/20 22:39 04/01/20 08:59 Apixaban 5 Mg Tablet PO 5 mg BID [place] Administration Atorvastatin Calcium 20 mg 03/29/20 09:00 04/01/20 08:58 Atorvastatin Calcium 20 Mg Tablet PO 20 mg DAILY [place] Administration Benzonatate 200 mg 03/30/20 10:30 04/01/20 09:00 Benzonatate 100 Mg Capsule PO 200 mg TID [place] Administration Dexamethasone Sodium Phosphate 6 mg 03/29/20 09:00 04/01/20 08:55 Dexamethasone Sod Phosphate/Pf 10 Mg/Ml Vial IVPUSH 6 mg DAILY [place] Administration Docusate Sodium 100 mg 03/28/20 22:39 Docusate Sodium 100 Mg Capsule PO DAILY PRN Constipation Gabapentin 100 mg 03/28/20 22:39 04/01/20 09:00 Gabapentin 100 Mg Capsule PO 100 mg BID [place] Administration Guaifenesin 600 mg 03/30/20 10:30 04/01/20 08:59 Guaifenesin La 600 Mg Tab.Er.12h PO 600 mg BID [place] Administration Methimazole 10 mg 03/29/20 09:00 04/01/20 08:59 Methimazole 10 Mg Tablet PO 10 mg DAILY [place] Administration Omeprazole 20 mg 03/29/20 06:30 04/01/20 05:47 Omeprazole 20 Mg Capsule. PO 20 mg BID@3227,7240 [place] Administration Ondansetron HCl 4 mg 03/28/20 22:39 Ondansetron Hcl 4 Mg/2 Ml Vial IVPUSH Q8H PRN Nausea and Vomiting Pharmacy Consult 1 each 03/28/20 08:25 Consult Rx Perform Med Rec MISCELLANE ONCE PRN Consult order Ranolazine 500 mg 03/28/20 22:39 04/01/20 08:59 Ranolazine 500 Mg Tab.Er.12h PO 500 mg BID [place] Administration Sacubitril/Valsartan 1 tab 03/28/20 22:39 04/01/20 08:59 Sacubitril/Valsartan 1 Tab Tablet PO 1 tab BID [place] Administration Protocol Sodium Chloride 3 ml 03/28/20 22:39 04/01/20 08:55 0.9 % Sodium Chloride Flush 3 Ml Syringe IVFLUSH 3 ml QSHIFT [place] Administration Sotalol HCl 40 mg 03/28/20 22:39 04/01/20 08:57 Sotalol Hcl 80 Mg Tablet PO 40 mg BID [place] Administration Tamsulosin HCl 0.4 mg 03/29/20 09:00 04/01/20 09:00 Tamsulosin Hcl 0.4 Mg Capsule PO 0.4 mg DAILY [place] Administration Labs CBC & Chem 7: 04/01/20 05:24 04/01/20 05:24 Microbiology Microbiology Results: Microbiology 03/28/20 09:11 Blood - Venous Blood Culture - Preliminary No growth after 48 hours. 03/28/20 08:55 Blood - Venous Blood Culture - Preliminary No growth after 48 hours. Assessment and Plan (1) Hypoxia: Status: Acute (2) COVID-19: Status: Acute Assessment and Plan: This is an 84 year old male with a history of afib, HCF, CAD, PUD, gERD, and recent diagnosis of covid 19 who presented to the ED with increasing shortness of breath. Acute respiratory failure with hypoxia Pneumonia secondary to COVID 19 On high flow oxygen and NRB Nexium requirement, next step is to go to the unit for BiPAP or intubation Continue IV deamethasone D5/10 Wean oxygen down as tolerated cough medications Not a candidate for remdesivir or plasma given more than week of symptoms atrial fibrillation continue sotalol, Eliquis CAD chest pain with cough only continue statin, ranolazine HFrEF Continue entresto BPH continue tamsulosin thyroid dz continue methimazole HLD continue statin PUD continue omeprazole DVT ppx - eliquis code status - full code, to readdress
--- NOTE | 2020-04-01 17:53 | PC.NURSE ---
VSS. DENIES PAIN. REMAINS ON HIGH FLOW & NRB. FAMILY UPDATED MULTIPLE TIMES THROUGHOUT THE SHIFT.
[2020-04-02] VITALS (21 sets, daily range): BP systolic 89–130; BP diastolic 46–69; PULSE 59–135; RESP 19–37; TEMP 36–38.6; O2SAT 85–97
[2020-04-02] MEDS: guaiFEN/Codeine SF 200/20/10ML 10 ML LIQUID 5 ML PO ×2 (01:08→09:23)
[2020-04-02] MEDS: Throat Lozenge, Medicated LOZENGE 1 LOZENGE MUCOUS MEM ×2 (05:01→09:22)
[2020-04-02] MEDS: Omeprazole 20 MG CAPSULE.DR PO (05:02)
[2020-04-02 06:40] LABS: Anion Gap 16 (12-20); Blood Urea Nitrogen 64 mg/dL (9-16); Calcium 8.1 mg/dL (8.4-10.2); Carbon Dioxide 22 mmol/L (22-29); Chloride 100 mmol/L (96-108); Creatinine Clr Calc Pharmacy 43.1; Estimated Glomerular Filt Rate > 60; Glucose Random 114 mg/dL (60-115); Potassium 4.6 mmol/L (3.3-5.1); Sodium 133 mmol/L (135-145)
[2020-04-02 07:08] LABS: Hematocrit 36.5 % (42-52); Hemoglobin 12.3 g/dl (14.0-18.0); Mean Corpuscular HGB Conc 33.7 g/dl (31.0-36.0); Mean Corpuscular Hemoglobin 27.1 pg (27.0-33.0); Mean Corpuscular Volume 80.4 fL (80-98); Platelet Count 183 X10*3/uL (160-400); Red Blood Count 4.54 X10*6/uL (4.60-5.80); Red Cell Distribution Width 15.9 % (11.0-16.0)
[2020-04-02] MEDS: 0.9 % Sodium Chloride Flush 3 ML SYRINGE IVFLUSH ×2 (09:20→14:25)
[2020-04-02] MEDS: Benzonatate 100 MG CAPSULE 200 MG PO ×2 (09:21→22:06)
[2020-04-02] MEDS: Tamsulosin HCL 0.4 MG CAPSULE PO (09:21)
[2020-04-02] MEDS: Gabapentin 100 MG CAPSULE PO (09:21)
[2020-04-02] MEDS: Apixaban 5 MG TABLET PO ×2 (09:21→22:06)
[2020-04-02] MEDS: Sotalol HCL 80 MG TABLET 40 MG PO (09:21)
[2020-04-02] MEDS: guaiFENesin LA 600 MG TAB.ER.12H PO (09:21)
[2020-04-02] MEDS: Ranolazine 500 MG TAB.ER.12H PO ×2 (09:21→22:06)
[2020-04-02] MEDS: Atorvastatin Calcium 20 MG TABLET PO (09:21)
[2020-04-02] MEDS: Sacubitril/Valsartan 24/26 1 TAB TABLET PO (09:21)
[2020-04-02] MEDS: methIMAzole 10 MG TABLET PO (09:21)
[2020-04-02] MEDS: ondansetron HCL 4 MG/2 ML VIAL IVPUSH (11:07)
--- NOTE | 2020-04-02 11:50 | HO.PM.IMPN ---
Subjective Subjective Date of Service: 04/02/20 Interval History: the patient was seen and evaluated this morning Laying in bed, feels more tired and lethargic Increased oxygen requirement to high-flow , NRB with sats in 80s since last night He looks in mild distress but much weaker Improved coughing episodes Denies any fever, chills but noticed increase shortness of breath No reported other overnight events. Systemic review: No fever, chills or weakness No chest pain, palpitation Increase oxygen requirement, in respiratory distress No abdominal pain, nausea or vomiting No urinary symptoms No any rash or wounds Physical Exam Vital Signs: Vital Signs: Last Vital Signs Temp 98.1 F 04/02/20 08:00 Pulse 65 04/02/20 08:00 Resp 24 H 04/02/20 11:03 BP 112/55 L 04/02/20 08:00 Pulse Ox 85 L 04/02/20 04:00 Body Mass Index 25.6 Const: Other: Constitutional : Alert, oriented, in mild respiratory distress Neck : Normal inspection, Supple Cardiovascular : RRR, S1 S2, no lower extremity edema Respiratory : Decrease bilateral air entry, increased oxygen requirement to high-flow & NRB, in respiratory distress Gastrointestinal: soft, lax, Normal bowel sounds, Non tender Skin : Warm/Dry, No rash Neurological : Alert & oriented x3, No focal deficit Objective Data Current Medications Generic Name Dose Route Start Last Admin Trade Name Freq PRN Reason Stop Dose Admin Acetaminophen 650 mg 03/28/20 22:39 Acetaminophen 325 Mg Tablet PO Q6H PRN Pain, Mild (Pain Scale 1-3) Apixaban 5 mg 03/28/20 22:39 04/02/20 09:21 Apixaban 5 Mg Tablet PO 5 mg BID [place] Administration Atorvastatin Calcium 20 mg 03/29/20 09:00 04/02/20 09:21 Atorvastatin Calcium 20 Mg Tablet PO 20 mg DAILY [place] Administration Benzocaine 1 lozenge 04/02/20 04:03 04/02/20 09:22 Throat Lozenge, Medicated Lozenge MUCOUS MEM 1 lozenge Q2H PRN Administration Sore Throat Benzonatate 200 mg 03/30/20 10:30 04/02/20 09:21 Benzonatate 100 Mg Capsule PO 200 mg TID [place] Administration Dexamethasone Sodium Phosphate 6 mg 03/29/20 09:00 04/02/20 09:22 Dexamethasone Sod Phosphate/Pf 10 Mg/Ml Vial IVPUSH 6 mg DAILY [place] Administration Docusate Sodium 100 mg 03/28/20 22:39 Docusate Sodium 100 Mg Capsule PO DAILY PRN Constipation Finasteride 5 mg 04/03/20 09:00 Finasteride 5 Mg Tablet PO DAILY [place] Gabapentin 100 mg 03/28/20 22:39 04/02/20 09:21 Gabapentin 100 Mg Capsule PO 100 mg BID [place] Administration Guaifenesin 600 mg 03/30/20 10:30 04/02/20 09:21 Guaifenesin La 600 Mg Tab.Er.12h PO 600 mg BID [place] Administration Guaifenesin/Codeine Phosphate 5 ml 04/01/20 23:37 04/02/20 09:23 Guaifen/Codeine Sf 200/20/10ml 10 Ml Liquid PO 5 ml Q6H PRN Administration Cough Methimazole 10 mg 03/29/20 09:00 04/02/20 09:21 Methimazole 10 Mg Tablet PO 10 mg DAILY [place] Administration Omeprazole 20 mg 03/29/20 06:30 04/02/20 05:02 Omeprazole 20 Mg Capsule. PO 20 mg BID@0630,1630 [place] Administration Ondansetron HCl 4 mg 03/28/20 22:39 04/02/20 11:07 Ondansetron Hcl 4 Mg/2 Ml Vial IVPUSH 4 mg Q8H PRN Administration Nausea and Vomiting Pharmacy Consult 1 each 03/28/20 08:25 Consult Rx Perform Med Rec MISCELLANE ONCE PRN Consult order Ranolazine 500 mg 03/28/20 22:39 04/02/20 09:21 Ranolazine 500 Mg Tab.Er.12h PO 500 mg BID [place] Administration Sacubitril/Valsartan 1 tab 03/28/20 22:39 04/02/20 09:21 Sacubitril/Valsartan 1 Tab Tablet PO 1 tab BID [place] Administration Protocol Sodium Chloride 3 ml 03/28/20 22:39 04/02/20 09:20 0.9 % Sodium Chloride Flush 3 Ml Syringe IVFLUSH 3 ml QSHIFT [place] Administration Sotalol HCl 40 mg 03/28/20 22:39 04/02/20 09:21 Sotalol Hcl 80 Mg Tablet PO 40 mg BID [place] Administration Tamsulosin HCl 0.4 mg 03/29/20 09:00 04/02/20 09:21 Tamsulosin Hcl 0.4 Mg Capsule PO 0.4 mg DAILY [place] Administration Labs CBC & Chem 7: 04/02/20 05:48 04/02/20 05:48 Microbiology Microbiology Results: Microbiology 03/28/20 09:11 Blood - Venous Blood Culture - Final No growth after 5 days. 03/28/20 08:55 Blood - Venous Blood Culture - Final No growth after 5 days. Assessment and Plan (1) Hypoxia: Status: Acute (2) COVID-19: Status: Acute Assessment and Plan: This is an 84 year old male with a history of afib, HCF, CAD, PUD, gERD, and recent diagnosis of covid 19 who presented to the ED with increasing shortness of breath. Acute respiratory failure with hypoxia Pneumonia secondary to COVID 19 On high flow oxygen and NRB Nexium requirement to transfer to the unit for CPAP Continue IV deamethasone D6/10 Wean oxygen down as tolerated cough medications Not a candidate for remdesivir or plasma given more than week of symptoms atrial fibrillation continue sotalol, Eliquis CAD chest pain with cough only continue statin, ranolazine HFrEF Continue entresto BPH continue tamsulosin thyroid dz continue methimazole HLD continue statin PUD continue omeprazole DVT ppx - eliquis code status - full code, to readdress
--- NOTE | 2020-04-02 11:55 | MHC.CM.PN ---
Patient is satting in the 80'2 on high flow O2 and NRB mask. Patient will be transferred to ICU today. CM will continue to follow patient for discharge needs.
--- NOTE | 2020-04-02 15:32 | P.PNCC_ITS ---
Subjective Subjective Date of Service: 04/02/20 Interval History: 84-year-old gentleman with underlying multiple medical issues including AFib status post permanent pacemaker, coronary artery disease status post CABG, combined systolic congestive heart failure with EF of 25% and diastolic congestive heart failure, chronic kidney disease, BPH, nonalcoholic fatty liver disease, hypertension, duodenal also, COVID positive on 03/23/2020 admitted on 03/28/2020 with hypoxemia secondary to COVID-19 ARDS and treated with dexamethasone. Hospital course significant for progressive hypoxemia r equiring initiation of CPAP support on 04/02/2020 and transfer to intensive care unit. Physical Exam Vital Signs: Vital Signs: Last Vital Signs Temp 98.1 F 04/02/20 08:00 Pulse 60 04/02/20 13:23 Resp 30 H 04/02/20 13:23 BP 109/55 L 04/02/20 13:23 Pulse Ox 97 04/02/20 13:23 Body Mass Index 25.6 Const: General: no acute distress, alert and awake Eyes: Sclerae: sclerae normal Neck: Neck: Yes no lymphadenopathy, Yes trachea midline and Yes supple Resp: Effort & Inspection: normal respiratory effort (On CPAP of 14) and no respiratory distress Auscultation: crackles (Diffuse bilateral) Cardio: Rate: regular rate Rhythm: regular rhythm Heart sounds: no gallops, no murmurs and no rubs GI: Palpation (GI): Soft to palpation and Other GI palpation findings present ( Nontender) Auscultation: normal bowel sounds Extrem: General: No clubbing, No cyanosis and Yes edema (Trace bilateral) Objective Data Labs CBC & Chem 7: 04/02/20 05:48 04/02/20 05:48 Labs: Laboratory Results - last 24 hr 04/02/20 04/02/20 05:48 05:48 WBC 20.0 H RBC 4.54 L Hgb 12.3 L Hct 36.5 L MCV 80.4 MCH 27.1 MCHC 33.7 RDW 15.9 Plt Count 183 MPV 11.0 Absolute Nucleated RBC 0.000 Nucleated RBC % (auto) 0.0 Sodium 133 L Potassium 4.6 Chloride 100 Carbon Dioxide 22 Anion Gap 16 BUN 64 H D Creatinine 1.13 Estim Creat Clear Calc 43.1 Estimated GFR > 60 Random Glucose 114 Calcium 8.1 L Microbiology Microbiology Results: Microbiology 03/28/20 09:11 Blood - Venous Blood Culture - Final No growth after 5 days. 03/28/20 08:55 Blood - Venous Blood Culture - Final No growth after 5 days. Progress Note: A&P Assessment and plan (1) Acute respiratory distress syndrome (ARDS) due to COVID-19 virus: Status: Acute Assessment and Plan: Assessment: 84-year-old gentleman with underlying multiple medical issues including combined systolic and diastolic heart failure with EF of 30%, coronary artery disease, chronic kidney disease admitted with acute hypoxic respiratory failure secondary to COVID-19 ARDS with progressive hypoxemia requiring initiat ion of CPAP support. Plan: Neuro: No acute issues. Cardiac: Underlying history of combined systolic and diastolic congestive heart failure with significantly reduced ejection fraction, AFib, status post pacemaker, coronary artery disease. Continue with outpatient cardiac regimen including rate control with sotalol, ranolazine, entresto, and anticoagulation with Eliquis Pulmonary: Acute hypoxic respiratory failure secondary to COVID-19 ARDS now requiring CPAP support. Continue to titrate off as tolerated. Renal: No acute issues. Underlying history of chronic renal disease. Endo: No acute issues. Underlying history of hyperthyroidism. GI: No acute issues. ID: COVID 19, continue with a 10 day course of dexamethasone. Heme/Onc: No acute issues. Psych: No acute issues. Miscellaneous: No acute issues. Overall very poor prognosis Prophylaxis: Eliquis, ppi Diet: Cardiac Critical care time spent: 60 minutes (2) Acute respiratory failure with hypoxia: Status: Acute (3) CKD (chronic kidney disease): Status: Acute (4) CHF (congestive heart failure): Status: Acute (5) CAD (coronary artery disease): Status: Acute (6) Hypertension: Status: Acute Time Spent With Patient Total time spent with greater than 50% in coordination of care (as documented) at patient's floor/unit and/or counseling patient:: 0 Critical Care Time Critical Care Time (minutes): 60
--- NOTE | 2020-04-02 18:49 | PC.NURSE ---
[place] [facility] [place] demands. Was placed on CPAP on IMC and transferred to ICU. Sats in 94s on 14 CPAP/100%. Mildly hypotensive but MAPs remain >65. Will continue to monitor.
[2020-04-03] VITALS (31 sets, daily range): BP systolic 91–132; BP diastolic 48–66; PULSE 60–102; RESP 12–33; TEMP 36.1–37.2; O2SAT 87–100
[2020-04-03 05:40] LABS: Base Excess VBG -0.7 mmol/L; HCO3 VBG 24 mmol/L; PCO2 VBG 39 mmHg; PO2 VBG 53 mmHg; pH VBG 7.38 (7.32-7.43)
[2020-04-03 05:41] LABS: Basophils Percent Auto 0.1 % (0-2); Hematocrit 40.3 % (42-52); Hemoglobin 13.2 g/dl (14.0-18.0); Lymphocytes Absolute Auto 0.6 X10*3/uL (1.2-4.9); Lymphocytes Percent Auto 2.8 % (20-40); MANUAL DIFF FLAG SCAN; Mean Corpuscular HGB Conc 32.8 g/dl (31.0-36.0); Mean Corpuscular Hemoglobin 27.3 pg (27.0-33.0); Mean Corpuscular Volume 83.3 fL (80-98); Mean Platelet Volume 10.3 fL (9.4-12.4); Monocytes Percent Auto 4.8 % (2-11); Neutrophils Absolute Auto 19.2 X10*3/uL (2.0-8.3); Neutrophils Percent Auto 91.3 % (45-73); Platelet Count 228 X10*3/uL (160-400); Red Blood Count 4.84 X10*6/uL (4.60-5.80); SCAN SMEAR FLAG 1
[2020-04-03] MEDS: 0.9 % Sodium Chloride Flush 3 ML SYRINGE IVFLUSH ×4 (05:56→23:59)
[2020-04-03 06:03] LABS: SLIDE REVIEW VERIFIED
[2020-04-03 06:11] LABS: Alanine Aminotransferase 93 U/L (0-40); Albumin Level 3.2 g/dL (3.5-5.0); Alkaline Phosphatase 69 U/L (39-117); Anion Gap 15 (12-20); Aspartate Amino Transferase 59 U/L (5-37); Bilirubin Total 0.8 mg/dL (0.0-1.0); Blood Urea Nitrogen 76 mg/dL (9-16); Calcium 8.4 mg/dL (8.4-10.2); Carbon Dioxide 23 mmol/L (22-29); Chloride 104 mmol/L (96-108); Creatinine Clr Calc Pharmacy 37.4; Estimated Glomerular Filt Rate 52; Glucose Random 109 mg/dL (60-115); Magnesium 2.8 mg/dL (1.6-2.6); Phosphorus 5.2 mg/dL (2.7-4.5); Potassium 5.1 mmol/L (3.3-5.1); Sodium 137 mmol/L (135-145)
[2020-04-03] MEDS: methIMAzole 10 MG TABLET PO (10:55)
[2020-04-03] MEDS: Tamsulosin HCL 0.4 MG CAPSULE PO (10:55)
[2020-04-03] MEDS: Apixaban 5 MG TABLET PO ×2 (10:55→20:29)
[2020-04-03] MEDS: Ranolazine 500 MG TAB.ER.12H PO ×2 (10:56→20:32)
[2020-04-03] MEDS: Finasteride 5 MG TABLET PO (10:56)
--- NOTE | 2020-04-03 11:24 | PM.CCPN ---
Subjective Subjective Date of Service: 04/03/20 Interval History: ICU day 2 acute hypoxic respiratory failure, COVID-19 ARDS. 84-year-old gentleman with underlying multiple medical issues including AFib status post permanent pacemaker, coronary artery disease status post CABG, combined systolic congestive heart failure with EF of 25% and diastolic congestive heart failure, chronic kidney disease, BPH, nonalcoholic fatty liver disease, hypertension, duodenal also, COVID positive on 03/23/2020 admitted on 03/28/2020 with hypoxemia secondary to COVID-19 ARDS and treated with dexamethasone. Hospital course significant for progressive hypoxemia requiring initiation of CPAP support on 04/02/2020 and transfer to intensive care unit. No events overnight. Physical Exam Vital Signs: Vital Signs: Last Vital Signs Temp 96.9 F 04/03/20 07:00 Pulse 60 04/03/20 10:58 Resp 16 04/03/20 10:58 BP 132/63 04/03/20 10:58 Pulse Ox 94 04/03/20 10:58 Body Mass Index 25.6 Const: General: no acute distress, alert and awake Eyes: Sclerae: sclerae normal EOM: EOMs intact bilaterally Neck: Neck: Yes no lymphadenopathy, Yes trachea midline and Yes supple Resp: Effort & Inspection: normal respiratory effort (On CPAP) and no respiratory distress Auscultation: crackles (Diffuse bilateral) Cardio: Rate: regular rate Rhythm: regular rhythm Heart sounds: no gallops, no murmurs and no rubs GI: Palpation (GI): Soft to palpation and Other GI palpation findings present ( Nontender) Auscultation: normal bowel sounds Extrem: General: No clubbing, No cyanosis and Yes edema (Trace bilateral) Objective Data Labs CBC & Chem 7: 04/03/20 05:30 04/03/20 05:30 Labs: Laboratory Results - last 24 hr 04/03/20 04/03/20 04/03/20 05:30 05:30 05:30 WBC 21.0 H RBC 4.84 Hgb 13.2 L Hct 40.3 L MCV 83.3 MCH 27.3 MCHC 32.8 RDW 16.0 Plt Count 228 MPV 10.3 Immature Gran % (Auto) 1.0 H Neut % (Auto) 91.3 H Lymph % (Auto) 2.8 L Whitley % (Auto) 4.8 Eos % (Auto) 0.0 Baso % (Auto) 0.1 Lymph # (Auto) 0.6 L Whitley # (Auto) 1.0 Eos # (Auto) 0.0 Baso # (Auto) 0.0 Abs Immat Gran (auto) 0.20 H Absolute Neuts (auto) 19.2 H Absolute Nucleated RBC 0.000 Nucleated RBC % (auto) 0.0 Smear Tech's Comments VERIFIED VBG pH 7.38 VBG pCO2 39 VBG pO2 53 VBG HCO3 24 VBG O2 Saturation 80.0 VBG Base Excess -0.7 Sodium 137 Potassium 5.1 Chloride 104 Carbon Dioxide 23 Anion Gap 15 BUN 76 H Creatinine 1.30 Estim Creat Clear Calc 37.4 Estimated GFR 52 Random Glucose 109 Calcium 8.4 Phosphorus 5.2 H Magnesium 2.8 H Total Bilirubin 0.8 AST 59 H ALT 93 H Alkaline Phosphatase 69 Total Protein 6.0 L Albumin 3.2 L Microbiology Microbiology Results: Microbiology 03/28/20 09:11 Blood - Venous Blood Culture - Final No growth after 5 days. 03/28/20 08:55 Blood - Venous Blood Culture - Final No growth after 5 days. Progress Note: A&P Assessment and plan (1) Acute respiratory failure with hypoxia: Status: Acute Assessment and Plan: Assessment: 84-year-old gentleman with underlying multiple medical issues including combined systolic and diastolic heart failure with EF of 30%, coronary artery disease, chronic kidney disease admitted with acute hypoxic respiratory failure secondary to COVID-19 ARDS with progressive hypoxemia requiring initiation of CPAP support. Plan: Neuro: No acute issues. Cardiac: Underlying history of combined systolic and diastolic congestive heart failure with significantly reduced ejection fraction, AFib, status post pacemaker, coronary artery disease. Continue with outpatient cardiac regimen including rate control with sotalol, ranolazine, entresto, and anticoagulation with Eliquis Pulmonary: Acute hypoxic respiratory failure secondary to COVID-19 ARDS now requiring CPAP support on and off. Continue to titrate off as tolerated. Renal: No acute issues. Underlying history of chronic renal disease. Endo: No acute issues. Underlying history of hyperthyroidism. GI: No acute issues. ID: COVID 19, continue with a 10 day course of dexamethasone. Heme/Onc: No acute issues. Psych: No acute issues. Miscellaneous: No acute issues. Overall very poor prognosis Prophylaxis: Eliquis, ppi Diet: Cardiac Critical care time spent: 60 minutes (2) Acute respiratory distress syndrome (ARDS) due to COVID-19 virus: Status: Acute (3) CKD (chronic kidney disease): Status: Acute (4) CAD (coronary artery disease): Status: Acute (5) CHF (congestive heart failure): Status: Acute Time Spent With Patient Total time spent with greater than 50% in coordination of care (as documented) at patient's floor/unit and/or counseling patient:: 0 Critical Care Time Critical Care Time (minutes): 60
[2020-04-03] MEDS: Benzonatate 100 MG CAPSULE 200 MG PO (20:29)
[2020-04-04] VITALS (35 sets, daily range): BP systolic 97–128; BP diastolic 39–64; PULSE 59–72; RESP 11–34; TEMP 36.2–37.2; O2SAT 83–100
[2020-04-04] MEDS: Omeprazole 20 MG CAPSULE.DR PO ×2 (05:42→17:38)
[2020-04-04 07:05] LABS: Base Excess VBG -0.4 mmol/L; HCO3 VBG 23 mmol/L; PCO2 VBG 34 mmHg; PO2 VBG 75 mmHg; pH VBG 7.43 (7.32-7.43)
[2020-04-04 07:15] LABS: Basophils Absolute Auto 0.1 X10*3/uL (0.0-0.2); Basophils Percent Auto 0.2 % (0-2); Hematocrit 41.6 % (42-52); Hemoglobin 13.6 g/dl (14.0-18.0); Imm Gran Abs Auto 0.33 X10*3/uL (0.00-0.03); Imm Gran Pct Auto 1.3 % (0.0-0.4); Lymphocytes Absolute Auto 0.7 X10*3/uL (1.2-4.9); Lymphocytes Percent Auto 2.7 % (20-40); MANUAL DIFF FLAG SCAN; Mean Corpuscular HGB Conc 32.7 g/dl (31.0-36.0); Mean Corpuscular Hemoglobin 27.1 pg (27.0-33.0); Monocytes Absolute Auto 0.9 X10*3/uL (0.1-1.2); Monocytes Percent Auto 3.5 % (2-11); Neutrophils Absolute Auto 23.7 X10*3/uL (2.0-8.3); Neutrophils Percent Auto 92.3 % (45-73); Red Blood Count 5.01 X10*6/uL (4.60-5.80); Red Cell Distribution Width 16.2 % (11.0-16.0); SCAN SMEAR FLAG 1; White Blood Count 25.7 X10*3/uL (4.8-10.8)
[2020-04-04 07:18] LABS: D Dimer 755 NG/ML
[2020-04-04 07:42] LABS: Albumin Level 3.3 g/dL (3.5-5.0); Anion Gap 16 (12-20); Blood Urea Nitrogen 81 mg/dL (9-16); C Reactive Protein 8.98 mg/dL (< or = 0.50); Calcium 8.5 mg/dL (8.4-10.2); Carbon Dioxide 25 mmol/L (22-29); Chloride 104 mmol/L (96-108); Creatinine Clr Calc Pharmacy 38.3; Estimated Glomerular Filt Rate 54; Glucose Random 132 mg/dL (60-115); Magnesium 3.1 mg/dL (1.6-2.6); Phosphorus 3.5 mg/dL (2.7-4.5); Potassium 4.9 mmol/L (3.3-5.1); Sodium 140 mmol/L (135-145)
[2020-04-04 07:51] LABS: SLIDE REVIEW VERIFIED
[2020-04-04 07:52] LABS: Ferritin 585 ng/mL (20-250)
[2020-04-04 07:53] LABS: Procalcitonin 0.06 ng/mL
[2020-04-04] MEDS: 0.9 % Sodium Chloride Flush 3 ML SYRINGE IVFLUSH ×3 (10:43→21:17)
[2020-04-04] MEDS: Apixaban 5 MG TABLET PO ×2 (10:44→21:16)
[2020-04-04] MEDS: Benzonatate 100 MG CAPSULE 200 MG PO ×3 (10:44→21:17)
[2020-04-04] MEDS: Ranolazine 500 MG TAB.ER.12H PO ×2 (10:45→21:15)
[2020-04-04] MEDS: methIMAzole 10 MG TABLET PO (10:45)
[2020-04-04] MEDS: Finasteride 5 MG TABLET PO (10:45)
[2020-04-04] MEDS: Sotalol HCL 80 MG TABLET 40 MG PO ×2 (10:46→21:16)
[2020-04-04] MEDS: Sacubitril/Valsartan 24/26 1 TAB TABLET PO ×2 (10:46→21:16)
[2020-04-04] MEDS: Tamsulosin HCL 0.4 MG CAPSULE PO (10:49)
[2020-04-04] MEDS: HYDROmorphone HCl 0.5 MG/0.5 ML SYRINGE IVPUSH ×3 (17:36→23:50)
[2020-04-04] MEDS: Sodium Chloride 0.45 % 1,000 ML 60 ML IVCONT (17:38)
--- NOTE | 2020-04-04 18:26 | P.PNCC_ITS ---
Subjective Subjective Date of Service: 04/04/20 Interval History: Mr. Noe was admitted to ICU on Apr 02 with hypoxemic respiratory failure 2? COVID pneumonia. The patient is an 84 yo gentlemen w the following PMHx: Afib on Eliquis and sotalol; s/p PPM CAD, s/p CABG Ischemic cardiomyopathy, with systolic (EF 25%) and diastolic heart failure. On Entresto, CKD Duodenal ulcer GERD Hiatal hernia Hyperlipidemia Hypertension IBS Neuropathy Nonalcoholic fatty liver disease BPH On Mar 23, he presented to the ED with 3 week h/o cough, and tested positive for COVID. Both of his sons had COVID. In the ED that day, ambulatory room air sat was 95%, and he was discharged home. He represented to the ED on c/o shortness of breath and cough. On arrival was hypoxemic with Sat 85% on room air. Lactic acid was 2.2, CRP 1.03, LDH 330. CTA showed moderate bilat lower lung infiltrates consistent with COVID. No PE. (My reading: Also has mild LVH and top normal sized or very mildly enlarged RV; severely dilated LA.) He was admitted to Medicine and treated with Decadron. Progressive hypoxemia led to transfer to the ICU on Apr 02 for initiation of CPAP. On exam today, he?s awake and appropriate. Has freqent vigorous cough. See Vital Signs below. Overnight last night was on CPAP, started at 100% FiO2, and was able to get down to 80% FiO2 by this morning. All day today, he?s been wearing the HFNC 60L/100% + NRBFM on flush, Sat?ing low- to high-80?s, with RR 20 - low 30s. He continues to be able to take his regular oral meds, including his Eliquis, Entresto, and sotalol. He?s been afebrile this entire hospitalization except for two temperatures in the 101.3? range on April 02. His rhythm is regular V-paced with a HR of 60. No access musc use, no increase in WOB other than that attributable to his RR. Urine output avg about 50cc/hr. LABORATORY DATA: As below. Notably, WBC up to 25, BUN/creat up to 81/1.3. DDimer and PCT are low. IMPRESSION: 1. Bilat COVID pneumonia. Changed steroids to Solu-Medrol 80mg bid, added thiamine, Pepcid, and Vit D. 2. Acute hypoxemic resp failure 2? above. CPAP prn. Otherwise allowing Sats down to 80%, as long as WOB is OK. 3. DANIELA with CKD at baseline. The renal ratio suggests the poss of hypovolemia. Checking U-Na. Started ?NS infusion. Hope he?s not developing COVID-associated DANIELA. 4. Hypernatremia. Using ?NS 5. Underlying CMOP. Continuing Entresto. 6. AFib, status post pacemaker. Continuiing Eliquis and sotalol. He needs a CVL for access and resp mx. Prognosis is grave bec of age and underlying dz. Mortality rate if he gets intubated is above 98%. Critical care time (includ chart rev and d/w Dr. Elmore and w AILYN Burnett: 60+ min. Physical Exam Vital Signs: Vital Signs: Last Vital Signs Temp 98.6 F 04/04/20 17:00 Pulse 63 04/04/20 18:00 Resp 22 H 04/04/20 18:00 BP 116/53 L 04/04/20 18:00 Pulse Ox 83 L 04/04/20 18:00 Body Mass Index 25.6 Objective Data Labs CBC & Chem 7: 04/04/20 06:55 04/04/20 06:55 Labs: Laboratory Results - last 24 hr 04/04/20 04/04/20 04/04/20 06:55 06:55 06:55 WBC 25.7 H RBC 5.01 Hgb 13.6 L Hct 41.6 L MCV 83.0 MCH 27.1 MCHC 32.7 RDW 16.2 H Plt Count TNP MPV Not Reportable Immature Gran % (Auto) 1.3 H Neut % (Auto) 92.3 H Lymph % (Auto) 2.7 L Lassen % (Auto) 3.5 Eos % (Auto) 0.0 Baso % (Auto) 0.2 Lymph # (Auto) 0.7 L Lassen # (Auto) 0.9 Eos # (Auto) 0.0 Baso # (Auto) 0.1 Abs Immat Gran (auto) 0.33 H Absolute Neuts (auto) 23.7 H Absolute Nucleated RBC 0.000 Nucleated RBC % (auto) 0.0 Smear Tech's Comments VERIFIED D-Dimer VBG pH 7.43 VBG pCO2 34 VBG pO2 75 VBG HCO3 23 VBG O2 Saturation 93.0 VBG Base Excess -0.4 Sodium 140 Potassium 4.9 Chloride 104 Carbon Dioxide 25 Anion Gap 16 BUN 81 H* Creatinine 1.27 Estim Creat Clear Calc 38.3 Estimated GFR 54 Random Glucose 132 H Calcium 8.5 Phosphorus 3.5 Magnesium 3.1 H Ferritin C-Reactive Protein 8.98 H Albumin 3.3 L Procalcitonin 04/04/20 04/04/20 04/04/20 06:55 06:55 06:55 WBC RBC Hgb Hct MCV MCH MCHC RDW Plt Count MPV Immature Gran % (Auto) Neut % (Auto) Lymph % (Auto) Lassen % (Auto) Eos % (Auto) Baso % (Auto) Lymph # (Auto) Lassen # (Auto) Eos # (Auto) Baso # (Auto) Abs Immat Gran (auto) Absolute Neuts (auto) Absolute Nucleated RBC Nucleated RBC % (auto) Smear Tech's Comments D-Dimer 755 VBG pH VBG pCO2 VBG pO2 VBG HCO3 VBG O2 Saturation VBG Base Excess Sodium Potassium Chloride Carbon Dioxide Anion Gap BUN Creatinine Estim Creat Clear Calc Estimated GFR Random Glucose Calcium Phosphorus Magnesium Ferritin 585 H C-Reactive Protein Albumin Procalcitonin 0.06 Microbiology Microbiology Results: Microbiology 03/28/20 09:11 Blood - Venous Blood Culture - Final No growth after 5 days. 03/28/20 08:55 Blood - Venous Blood Culture - Final No growth after 5 days. Progress Note: A&P Time Spent With Patient Time: Total time spent is greater than 50% in coordination of care (as documen consuelo) at patient's floor/unit and/or counseling patient: Total time spent with greater than 50% in coordination of care (as documented) at patient's floor/unit and/or counseling patient:: 0 Critical Care Time Critical Care Time (minutes): 60
--- NOTE | 2020-04-04 20:13 | PC.NURSE ---
assumed care at 0645. patient on high flow 100% and 60 lpm and cpap 14 at 80% for sleeping. alert to drowsy at times, oriented x4, vague at times, markedly hard of hearing. Patient spo2 varied, often 89-93% range on high flow with NRB, but often with 86%, with cpap applied with good effect. Lung sounds diminished throughout, markedly at bases. Productive cough of clear/whitish sputum, md aware. patient afebrile. iv dilaudid ordered and adiminstered for dyspnea with good effect. Patient with tenting skin and MAPs that were 61 and 64 at times, and was given a 1/2 NS bolus of 500 ccs at 250/hour, then continuous IVF 60 ccs per hour 1/2 ns. Patient with distant heart sounds, morrow putting out 30-50 cc per hour. skin intact, reddened and blanchable at bilat buttocks and left ear. full bath today, no bm. good fluids, poor appetite, 50% breakfast, and only snack for lunch.
[2020-04-04] MEDS: Cholecalciferol (Vitamin D3) 25 MCG TABLET 50 MCG PO (21:15)
[2020-04-04] MEDS: Famotidine/PF 20 MG/2 ML VIAL IVPUSH (21:15)
--- NOTE | 2020-04-04 21:27 | W.PM.CCHP ---
Procedures Central Line Placement Right IJ: Central Line Comments: Right internal jugular triple lumen central venous catheter placed in usual sterile conditions under ultrasound guidance for appropriate vascular access without immediate complications. Central line position verified with Chest XRAY. Consent for Procedure: Emergent-no informed consent obtained Time out performed: Yes Sterile Technique Used: Yes Patient placed on monitor/pulse ox: Yes prep: mask, gown, gloves and other Central line prep: Chlorhexidine scrub Local anesthesia used: lidocaine 1% Ultrasound used for placement: Yes Central line lumen inserted: triple Post procedure: sutured in place, good blood return, all ports aspirated, flushed, capped and sterile dressing applied Post procedure x-ray: tip of catheter in good position and no pneumothorax seen Patient tolerated procedure: well and no complications Complications: none
[2020-04-05] VITALS (33 sets, daily range): BP systolic 97–160; BP diastolic 46–107; PULSE 60–90; RESP 14–37; TEMP 36.6–36.8; O2SAT 86–98; BMI 26.3
[2020-04-05] MEDS: Sodium Chloride 0.45 % 1,000 ML 60 ML IVCONT ×2 (05:37→21:39)
[2020-04-05] MEDS: Omeprazole 20 MG CAPSULE.DR PO (05:37)
[2020-04-05 05:46] LABS: Basophils Percent Auto 0.2 % (0-2); Hematocrit 37.4 % (42-52); Hemoglobin 12.2 g/dl (14.0-18.0); Imm Gran Abs Auto 0.32 X10*3/uL (0.00-0.03); Imm Gran Pct Auto 1.3 % (0.0-0.4); Lymphocytes Absolute Auto 0.6 X10*3/uL (1.2-4.9); Lymphocytes Percent Auto 2.3 % (20-40); MANUAL DIFF FLAG SCAN; Mean Corpuscular HGB Conc 32.6 g/dl (31.0-36.0); Mean Corpuscular Hemoglobin 27.2 pg (27.0-33.0); Mean Corpuscular Volume 83.3 fL (80-98); Mean Platelet Volume 10.5 fL (9.4-12.4); Monocytes Absolute Auto 0.7 X10*3/uL (0.1-1.2); Monocytes Percent Auto 2.9 % (2-11); Neutrophils Absolute Auto 23.8 X10*3/uL (2.0-8.3); Neutrophils Percent Auto 93.3 % (45-73); Platelet Count 213 X10*3/uL (160-400); Red Blood Count 4.49 X10*6/uL (4.60-5.80); Red Cell Distribution Width 16.3 % (11.0-16.0); SCAN SMEAR FLAG 1; White Blood Count 25.5 X10*3/uL (4.8-10.8)
[2020-04-05 05:47] LABS: Base Excess VBG -1.4 mmol/L; HCO3 VBG 22 mmol/L; PCO2 VBG 35 mmHg; PO2 VBG 50 mmHg; pH VBG 7.41 (7.32-7.43)
[2020-04-05 06:09] LABS: Alanine Aminotransferase 83 U/L (0-40); Alkaline Phosphatase 72 U/L (39-117); Anion Gap 13 (12-20); Aspartate Amino Transferase 33 U/L (5-37); Bilirubin Total 0.9 mg/dL (0.0-1.0); Blood Urea Nitrogen 63 mg/dL (9-16); Calcium 8.4 mg/dL (8.4-10.2); Carbon Dioxide 26 mmol/L (22-29); Chloride 107 mmol/L (96-108); Creatinine Clr Calc Pharmacy 57.3; Estimated Glomerular Filt Rate > 60; Glucose Random 121 mg/dL (60-115); Magnesium 2.8 mg/dL (1.6-2.6); Phosphorus 3.2 mg/dL (2.7-4.5); Potassium 4.8 mmol/L (3.3-5.1); Sodium 141 mmol/L (135-145); Total Protein 5.6 g/dL (6.5-8.0)
[2020-04-05] MEDS: 0.9 % Sodium Chloride Flush 3 ML SYRINGE IVFLUSH ×2 (08:27→16:05)
[2020-04-05] MEDS: methIMAzole 10 MG TABLET PO (08:47)
[2020-04-05] MEDS: Cholecalciferol (Vitamin D3) 25 MCG TABLET 50 MCG PO (08:47)
[2020-04-05] MEDS: Apixaban 5 MG TABLET PO (08:47)
[2020-04-05] MEDS: Tamsulosin HCL 0.4 MG CAPSULE PO (08:48)
[2020-04-05] MEDS: Ranolazine 500 MG TAB.ER.12H PO (08:48)
[2020-04-05] MEDS: Sotalol HCL 80 MG TABLET 40 MG PO (08:48)
[2020-04-05] MEDS: Famotidine/PF 20 MG/2 ML VIAL IVPUSH (08:49)
[2020-04-05] MEDS: Benzonatate 100 MG CAPSULE 200 MG PO ×2 (08:49→13:27)
[2020-04-05] MEDS: Thiamine HCL 200 MG/2 ML VIAL IVPUSH (08:49)
[2020-04-05] MEDS: Sacubitril/Valsartan 24/26 1 TAB TABLET PO (08:49)
[2020-04-05] MEDS: Finasteride 5 MG TABLET PO (08:49)
[2020-04-05 09:16] LABS: SLIDE REVIEW VERIFIED
--- NOTE | 2020-04-05 11:14 | MHC.CM.PN ---
Pt remains in ICU with COVID on NRB: high flow O2. His overall prognosis is grave per processing associate and more so if he requires intubation as mortality is 98% given his hx and age. CM will follow daily - it is unlikely that pt will be able to return to home with his son unless it is for Hospice care. has been updating son Stefan on medical condition: CM will f/u once pt's d/c needs are better known
[2020-04-05] MEDS: HYDROmorphone HCl 0.5 MG/0.5 ML SYRINGE IVPUSH (13:27)
--- NOTE | 2020-04-05 14:07 | PM.CCPN ---
Subjective Subjective Date of Service: 04/05/20 Interval History: Mr. Noe was admitted to ICU on Apr 02 with hypoxemic respiratory failure 2? COVID pneumonia. The patient is an 84 yo gentlemen w the following PMHx: Afib on Eliquis and sotalol; s/p PPM CAD, s/p CABG Ischemic cardiomyopathy, with systolic (EF 25%) and diastolic heart failure. On Entresto, CKD Duodenal ulcer GERD Hiatal hernia Hyperlipidemia Hypertension IBS Neuropathy Nonalcoholic fatty liver disease BPH On Mar 23, he presented to the ED with 3 week h/o cough, and tested positive for COVID. Both of his sons had COVID. In the ED that day, ambulatory room air sat was 95%. He was discharged home. He represented to the ED on c/o shortness of breath and cough. On arrival was hypoxemic with Sat 85% on room air. Lactic acid was 2.2, CRP 1.03, LDH 330. CTA showed moderate bilat lower lung infiltrates consistent with COVID. No PE. (My reading: Also had mild LVH and top normal-sized or very mildly enlarged RV, w severely dilated LA.) He was admitted to Medicine and treated with Decadron (no remdesivir or plasma bec of late presentation). Progressive hypoxemia led to transfer to the ICU on Apr 02 for initiation of CPAP. Since then, he?s been doing CPAP at night and HFNC with NRBFM during the day. When he goes on CPAP, his FiO2 has been able to be reduced to 80%. A CVL was placed yesterday for IV access and monitoring. On exam today, he?s fully awake and appropriate. Had a great visit with his son this morning. Still having freqent vigorous cough, that responds very well to 1/2mg IV Dilaudid. See Vital Signs below. All day today, he?s been wearing the HFNC 60L/100% + NRBFM at 15L, Sat?ing 88-92%, with RR 18-28. He continues to be able to take his regular oral meds, including his Eliquis, Entresto, and sotalol, and he?s able to taking ensure, pudding, and at least some of a regular diet. He continues afebrile. HR is 72 today and he?s mostly sinus rhythm, only occ pacer spikes. No access musc use, no increase in WOB other than that attributable to his RR. Urine output avg about 50cc/hr. LABORATORY DATA: As below. Notably, BUN/creat down to 63/0.8 after volume resusc yesterday. U-Na was 25. IMPRESSION: 1. Bilat COVID pneumonia. Changed steroids to Solu-Medrol 80mg bid, added thiamine, Pepcid, and Vit D. 2. Acute hypoxemic resp failure 2? above. CPAP and opiates prn. Otherwise allowing Sats down to 80%, as long as WOB is OK. 3. DANIELA with CKD at baseline. The renal ratio still suggests the poss of hypovolemia. We?ll check daily U-Na. Continue ?NS infusion and follow indices. 4. Hypernatremia. Resolved. 5. Underlying CMOP. Continuing Entresto. 6. AFib, status post pacemaker. Continuiing Eliquis and sotalol. 7. ID: No abx at present. Prognosis is grave bec of age and underlying dz. Mortality rate if he gets intubated is above 98%. I spoke with the patient?s son here at some length this morning. The family knows full well what the score would be if he gets intubated, and they don?t want that and they don?t want CPR. I told him we?ll keep pushing what we?re doing now and if he gets to the point where he?s just not making it, then we?ll make him comfortable. The son was very satisfied with that. I will change his orders to DNR/DNI. Critical care time: 70 min. Physical Exam Vital Signs: Vital Signs: Last Vital Signs Temp 98.3 F 04/05/20 12:00 Pulse 62 04/05/20 13:00 Resp 21 H 04/05/20 13:27 BP 115/46 L 04/05/20 13:00 Pulse Ox 88 L 04/05/20 13:00 Body Mass Index 26.3 Objective Data Labs CBC & Chem 7: 04/05/20 05:25 04/05/20 05:25 Labs: Laboratory Results - last 24 hr 04/04/20 04/05/20 04/05/20 21:23 05:25 05:25 WBC 25.5 H RBC 4.49 L Hgb 12.2 L Hct 37.4 L MCV 83.3 MCH 27.2 MCHC 32.6 RDW 16.3 H Plt Count 213 MPV 10.5 Immature Gran % (Auto) 1.3 H Neut % (Auto) 93.3 H Lymph % (Auto) 2.3 L [place] % (Auto) 2.9 Eos % (Auto) 0.0 Baso % (Auto) 0.2 Lymph # (Auto) 0.6 L [place] # (Auto) 0.7 Eos # (Auto) 0.0 Baso # (Auto) 0.0 Abs Immat Gran (auto) 0.32 H Absolute Neuts (auto) 23.8 H Absolute Nucleated RBC 0.000 Nucleated RBC % (auto) 0.0 Smear Tech's Comments VERIFIED VBG pH VBG pCO2 VBG pO2 VBG HCO3 VBG O2 Saturation VBG Base Excess Sodium 141 Potassium 4.8 Chloride 107 Carbon Dioxide 26 Anion Gap 13 BUN 63 H Creatinine 0.85 Estim Creat Clear Calc 57.3 Estimated GFR > 60 Random Glucose 121 H Calcium 8.4 Phosphorus 3.2 Magnesium 2.8 H Total Bilirubin 0.9 AST 33 D ALT 83 H Alkaline Phosphatase 72 Total Protein 5.6 L Albumin 3.0 L Ur Random Sodium 25.0 04/05/20 05:25 WBC RBC Hgb Hct MCV MCH MCHC RDW Plt Count MPV Immature Gran % (Auto) Neut % (Auto) Lymph % (Auto) [place] % (Auto) Eos % (Auto) Baso % (Auto) Lymph # (Auto) [place] # (Auto) Eos # (Auto) Baso # (Auto) Abs Immat Gran (auto) Absolute Neuts (auto) Absolute Nucleated RBC Nucleated RBC % (auto) Smear Tech's Comments VBG pH 7.41 VBG pCO2 35 VBG pO2 50 VBG HCO3 22 VBG O2 Saturation 77.0 VBG Base Excess -1.4 Sodium Potassium Chloride Carbon Dioxide Anion Gap BUN Creatinine Estim Creat Clear Calc Estimated GFR Random Glucose Calcium Phosphorus Magnesium Total Bilirubin AST ALT Alkaline Phosphatase Total Protein Albumin Ur Random Sodium Microbiology Microbiology Results: Microbiology 03/28/20 09:11 Blood - Venous Blood Culture - Final No growth after 5 days. 03/28/20 08:55 Blood - Venous Blood Culture - Final No growth after 5 days. Progress Note: A&P Time Spent With Patient Time: Total time spent is greater than 50% in coordination of care (as documented) at patient's floor/unit and/or counseling patient: Total time spent with greater than 50% in coordination of care (as documented) at patient's floor/unit and/or counseling patient:: 0 Critical Care Time Critical Care Time (minutes): 60
--- NOTE | 2020-04-05 15:29 | PC.NURSE ---
Pt placed on 100% non rebreather and 100% high flow this am by RT, able to eat 25% of breakfast and 50% of lunch and ensure for lunch. Son in to visit pt this morning. Pt with strong cough, coughing up clear thick sputum, reports feeling short of breath with coughing,scheduled tessalon given with no effec, prn dilaudid given per MD with good effect. Pt falling asleep, desat down to 81-82% on nonrebreather/highflow, RT at bedside and pt placed back on Cpap settings, o2 back to 95-96% currently, pt resting with eyes closed.
[2020-04-05] MEDS: methylPREDNISolone Sod Succ/PF 125 MG/2 ML VIAL 80 MG IVPUSH (18:40)
[2020-04-05] MEDS: fentaNYL citrate/PF 100 MCG/2 ML VIAL 50 MCG IVPUSH (20:51)
[2020-04-05] MEDS: Fluticasone Propionate Nasal 16 GM SPRAY 2 SPRAY NOSTRIL-B (21:38)
[2020-04-06] VITALS (35 sets, daily range): BP systolic 106–172; BP diastolic 22–83; PULSE 60–81; RESP 16–40; TEMP 35.8–37; O2SAT 85–100
[2020-04-06] MEDS: Omeprazole 20 MG CAPSULE.DR PO ×2 (05:42→16:00)
[2020-04-06] MEDS: methylPREDNISolone Sod Succ/PF 125 MG/2 ML VIAL 80 MG IVPUSH ×2 (05:42→16:02)
[2020-04-06 05:49] LABS: Base Excess VBG 0.4 mmol/L; HCO3 VBG 24 mmol/L; PCO2 VBG 36 mmHg; PO2 VBG 46 mmHg; pH VBG 7.42 (7.32-7.43)
[2020-04-06 05:51] LABS: Basophils Percent Auto 0.1 % (0-2); Hematocrit 37.3 % (42-52); Hemoglobin 12.4 g/dl (14.0-18.0); Imm Gran Abs Auto 0.31 X10*3/uL (0.00-0.03); Imm Gran Pct Auto 1.2 % (0.0-0.4); Lymphocytes Absolute Auto 0.5 X10*3/uL (1.2-4.9); Lymphocytes Percent Auto 2.1 % (20-40); MANUAL DIFF FLAG SCAN; Mean Corpuscular HGB Conc 33.2 g/dl (31.0-36.0); Mean Corpuscular Hemoglobin 27.6 pg (27.0-33.0); Mean Corpuscular Volume 83.1 fL (80-98); Mean Platelet Volume 10.1 fL (9.4-12.4); Monocytes Absolute Auto 0.4 X10*3/uL (0.1-1.2); Monocytes Percent Auto 1.7 % (2-11); Neutrophils Absolute Auto 23.6 X10*3/uL (2.0-8.3); Neutrophils Percent Auto 94.9 % (45-73); Platelet Count 136 X10*3/uL (160-400); Red Blood Count 4.49 X10*6/uL (4.60-5.80); Red Cell Distribution Width 16.4 % (11.0-16.0); SCAN SMEAR FLAG 1; White Blood Count 24.8 X10*3/uL (4.8-10.8)
[2020-04-06 06:16] LABS: Anion Gap 14 (12-20); Blood Urea Nitrogen 55 mg/dL (9-16); C Reactive Protein 7.96 mg/dL (< or = 0.50); Calcium 8.1 mg/dL (8.4-10.2); Carbon Dioxide 24 mmol/L (22-29); Chloride 107 mmol/L (96-108); Creatinine Clr Calc Pharmacy 56.6; Estimated Glomerular Filt Rate > 60; Glucose Random 140 mg/dL (60-115); Potassium 4.8 mmol/L (3.3-5.1); Sodium 140 mmol/L (135-145)
[2020-04-06 06:35] LABS: Procalcitonin 0.05 ng/mL
[2020-04-06 06:38] LABS: Ferritin 614 ng/mL (20-250)
[2020-04-06 06:42] LABS: SLIDE REVIEW VERIFIED
[2020-04-06 07:16] LABS: D Dimer 9760 NG/ML
--- NOTE | 2020-04-06 07:22 | CA_ITS ---
Transthoracic Echocardiogram Patient (Last, First, Middle): Yousuf Noe, Gender: Male Date of : 1935 Age: 84 Procedure Date: 04/06/2020 Procedure Type: Transthoracic Echocardiogram Location: ICU Height: 170.18 cm Weight: 74.39 kg BSA: 1.86 m2 Heart Rate: bpm BP: 132 / 38 mmHg Supervisor Public Message Service: MYRA Referring MD: Darian Guzman Symptoms: COVID patient w severe hypoxemia with marked DDimer; r/o PE Conclusions: - 1. [id number] LV systolic dysfunction with impaired relaxation filling pattern 2. Normal RV systolic pressure Findings Left Ventricle Normal left ventricular cavity size. The visually estimated ejection fraction is between 40-45%. Regional wall motion abnormalities can not be excluded due to suboptimal endocardial definition. There is paradoxical septal motion consistent with a right ventricular pacemaker. Spectral Doppler is indicative of an impaired relaxation filling pattern. E/E prime ratio is between 8 and 15 consistent with indeterminate filling pressures. Right Ventricle Normal right ventricular cavity size. There is normal right ventricular systolic function. There is a pacemaker wire seen in the right ventricle. Tricuspid Valve There is mild tricuspid valve regurgitation. The right ventricular systolic pressure is normal. The right ventricular systolic pressure is 36 mmHg. There is no evidence of pulmonary hypertension. Pericardium/Pleural There is no evidence of pericardial effusion. Prior Study Comparison Changes noted compared to prior study dated: 02/20/2020. LV systolic function is improved. RV systolic function also appears to be normal. Measurements 2D Linear Measurements IVSd: 1.15 0.6-0.9/0.6-1.0 cm LVIDd: 5.54 3.9-5.3/4.2-5.9 cm LVIDd Index: 2.98 2.4-3.2/2.2-3.1 cm/m2 LVIDs: 4.27 2.0-3.6 cm LVPWd: 1.08 0.7-1.1 cm LV Mass: 311.03 67-162/88-224 g LV Mass Index: 167.22 43-95/49-115 g/m2 2D Systolic Function EF 4C: 36.70 >55% EF 2C: 41.30 >55% EF BiP: 40.90 >55% Tricuspid Valve TR Pk Jose Alfredo: 2.89 TR Pk Grad: 33.00 RA Press: 3.00 RVSP: 36.00 Updated in Other Vendor System with Status of Final Riaz Parker MD electronically signed on 04/06/2020 12:25:16 PM with status of Final
[2020-04-06] MEDS: Famotidine/PF 20 MG/2 ML VIAL IVPUSH (08:34)
[2020-04-06] MEDS: HYDROmorphone HCl 0.5 MG/0.5 ML SYRINGE IVPUSH (08:34)
[2020-04-06] MEDS: Thiamine HCL 200 MG/2 ML VIAL IVPUSH (08:34)
[2020-04-06] MEDS: Cholecalciferol (Vitamin D3) 25 MCG TABLET 50 MCG PO (08:35)
[2020-04-06] MEDS: Benzonatate 100 MG CAPSULE 200 MG PO ×2 (08:35→23:10)
[2020-04-06] MEDS: Apixaban 5 MG TABLET PO (08:36)
[2020-04-06] MEDS: Sacubitril/Valsartan 24/26 1 TAB TABLET PO (08:36)
[2020-04-06] MEDS: Sotalol HCL 80 MG TABLET 40 MG PO (08:36)
[2020-04-06] MEDS: Ranolazine 500 MG TAB.ER.12H PO (08:36)
[2020-04-06] MEDS: methIMAzole 10 MG TABLET PO (08:36)
[2020-04-06] MEDS: 0.9 % Sodium Chloride Flush 3 ML SYRINGE IVFLUSH ×2 (08:36→13:39)
[2020-04-06] MEDS: Tamsulosin HCL 0.4 MG CAPSULE PO (08:36)
[2020-04-06] MEDS: Fluticasone Propionate Nasal 16 GM SPRAY 2 SPRAY NOSTRIL-B (08:37)
[2020-04-06] MEDS: Finasteride 5 MG TABLET PO (08:37)
--- NOTE | 2020-04-06 12:30 | MHC.CLN ---
rE: CONSULT AND F/U 50% AVG PO INTAKE DIET RX: CARDIAC-APPROPRIATE PT RECEIVING ENSURE BID TO INCREASE KCALS PT IS 100% ACCEPTING OF SUPPLEMENTS LESLIE FOR WOUND HEALING FOLLOWING
[2020-04-06] MEDS: Sodium Chloride 0.45 % 1,000 ML 60 ML IVCONT (13:38)
--- NOTE | 2020-04-06 13:47 | MHC.CM.PN ---
Pt continues in ICU with COVID on high flow O2. MD has discussed goals of care with pts son and pt was made DNR/DNI. D/C plan was for a return to home with son and VNA however, this seems highly unlikely given pt's prolonged hospitalization and resulting deconditioning. Will initiate SNF referrals should pt recover and need STR. CM will follow for pt's finalization of d/c planning
[2020-04-06] MEDS: HYDROmorphone HCl 0.5 MG/0.5 ML SYRINGE 0.25 MG IVPUSH ×5 (14:21→23:11)
--- NOTE | 2020-04-06 18:07 | PM.CCPN ---
Subjective Subjective Date of Service: 04/06/20 Interval History: Mr. Noe was admitted to ICU on Apr 02 with hypoxemic respiratory failure 2? COVID pneumonia. The patient is an 84 yo gentlemen w the following PMHx: Afib on Eliquis and sotalol; s/p PPM CAD, s/p CABG Ischemic cardiomyopathy, with systolic (EF 25%) and diastolic heart failure. On Entresto, CKD Duodenal ulcer GERD Hiatal hernia Hyperlipidemia Hypertension IBS Neuropathy Nonalcoholic fatty liver disease BPH On Mar 23, he presented to the ED with 3 week h/o cough, and tested positive for COVID. Both of his sons had COVID. In the ED that day, ambulatory room air sat was 95%. He was discharged home. He represented to the ED on Mar 28 c/o shortness of breath and cough. On arrival was hypoxemic with Sat 85% on room air. Lactic acid was 2.2, CRP 1.03, LDH 330. CTA showed moderate bilat lower lung infiltrates consistent with COVID. No PE. (My reading: Also had mild LVH and top normal-sized or very mildly enlarged RV, w severely dilated LA.) He was admitted to Medicine and treated with Decadron (no remdesivir or plasma bec of late presentation). Progressive hypoxemia led to transfer to the ICU on Apr 02 for initiation of CPAP. Since then, he?s been doing CPAP at night and HFNC with NRBFM during the day. When he goes on CPAP, his FiO2 had been able to be reduced to 80%. A CVL was placed on Apr 05 for IV access and monitoring. He?s been getting small dose Dilaudid for relief of cough and/or WOB. On Apr 05, I had a long d/w the patient?s son Feliciano and we changed his code status to DNR/DNI. Overnite last night, when he went on CPAP, he was not able to reduce his FiO2 below 100%. He?s required a number of doses of Dilaudid today for WOB. He?s been fully awake and appropriate. Today wasn?t able to eat nearly as much as he did yesterday. See Vital Signs below. Currently he?s lying comfortably in bed watching television. RR is 27-30, Sat is 88% on the HFNC 60L/100% + NRBFM at 15L. CVBG this morning showed 7.42/36/0. He continues to be able to take his regular oral meds, including his Eliquis, Entresto, and sotalol. He continues afebrile. HR is 68 and has been mostly sinus rhythm today, w intermittent pacer spikes. No access musc use, no increase in WOB other than that attributable to his RR. Urine output avg about 40cc/hr. LABORATORY DATA: As below. Notably, BUN/creat down further to 55/0.8 after volume resusc. Urine sodium is 26. DDimer up to sharply 9760. Ferritin and CRP were stable. Procalcitonin is 0.05. IMAGING: Duplex scan of his lower extremities was negative for DVT. Limited echocardiogram showed normal right ventricular cavity size, normal right ventricular systolic function, and normal estimated RV systolic pressure. Estimated LV EF was about 40%. IMPRESSION: 1. Bilat COVID pneumonia. Changed steroids to Solu-Medrol 80mg bid, added thiamine, Pepcid, and Vit D. 2. Acute hypoxemic resp failure 2? above. CPAP and opiates prn. Otherwise allowing Sats down to 80%, as long as WOB is OK. 3. Elevated D-dimer. No evidence of VTE thus far. 4. DANIELA with CKD at baseline. The renal ratio is still prerenal, altho it?s possible that he has some element of cardiorenal sx. Continue ?NS infusion and follow indices. 5. Hypernatremia. Resolved. 6. Underlying CMOP. Continuing Entresto. 7. AFib, status post pacemaker. Continuiing Eliquis and sotalol. 8. ID: No abx at present. Prognosis is grave bec of age and underlying comorbidities. Mortality rate if he gets intubated is above 98%. His family?s made the chilel (IMO) decision to have DNR/DNI status. We?ll keep doing what we?re doing, using CPAP or BiPAP as nec, and if he gets to the point where he?s just not making it, then we?ll make him comfortable. Critical care time: 50 min. Physical Exam Vital Signs: Vital Signs: Last Vital Signs Temp 96.5 F L 04/06/20 16:19 Pulse 71 04/06/20 17:00 Resp 28 H 04/06/20 17:35 BP 155/73 H 04/06/20 17:00 Pulse Ox 88 L 04/06/20 17:00 Body Mass Index 26.3 Objective Data Labs CBC & Chem 7: 04/06/20 05:30 04/06/20 05:30 Labs: Laboratory Results - last 24 hr 04/06/20 04/06/20 04/06/20 05:30 05:30 05:30 WBC 24.8 H RBC 4.49 L Hgb 12.4 L Hct 37.3 L MCV 83.1 MCH 27.6 MCHC 33.2 RDW 16.4 H Plt Count 136 L D MPV 10.1 Immature Gran % (Auto) 1.2 H Neut % (Auto) 94.9 H Lymph % (Auto) 2.1 L [place] % (Auto) 1.7 L Eos % (Auto) 0.0 Baso % (Auto) 0.1 Lymph # (Auto) 0.5 L [place] # (Auto) 0.4 Eos # (Auto) 0.0 Baso # (Auto) 0.0 Abs Immat Gran (auto) 0.31 H Absolute Neuts (auto) 23.6 H Absolute Nucleated RBC 0.000 Nucleated RBC % (auto) 0.0 Smear Tech's Comments VERIFIED D-Dimer 9760 VBG pH VBG pCO2 VBG pO2 VBG HCO3 VBG O2 Saturation VBG Base Excess Sodium 140 Potassium 4.8 Chloride 107 Carbon Dioxide 24 Anion Gap 14 BUN 55 H Creatinine 0.86 Estim Creat Clear Calc 56.6 Estimated GFR > 60 Random Glucose 140 H Calcium 8.1 L Ferritin 614 H C-Reactive Protein 7.96 H Procalcitonin Ur Random Sodium 04/06/20 04/06/20 04/06/20 05:30 05:30 11:00 WBC RBC Hgb Hct MCV MCH MCHC RDW Plt Count MPV Immature Gran % (Auto) Neut % (Auto) Lymph % (Auto) [place] % (Auto) Eos % (Auto) Baso % (Auto) Lymph # (Auto) [place] # (Auto) Eos # (Auto) Baso # (Auto) Abs Immat Gran (auto) Absolute Neuts (auto) Absolute Nucleated RBC Nucleated RBC % (auto) Smear Tech's Comments D-Dimer VBG pH 7.42 VBG pCO2 36 VBG pO2 46 VBG HCO3 24 VBG O2 Saturation 75.0 VBG Base Excess 0.4 Sodium Potassium Chloride Carbon Dioxide Anion Gap BUN Creatinine Estim Creat Clear Calc Estimated GFR Random Glucose Calcium Ferritin C-Reactive Protein Procalcitonin 0.05 Ur Random Sodium 26.0 Microbiology Microbiology Results: Microbiology 03/28/20 09:11 Blood - Venous Blood Culture - Final No growth after 5 days. 03/28/20 08:55 Blood - Venous Blood Culture - Final No growth after 5 days. Progress Note: A&P Time Spent With Patient Time: Total time spent is greater than 50% in coordination of care (as documented) at patient's floor/unit and/or counseling patient: Total time spent with greater than 50% in coordination of care (as documented) at patient's floor/unit and/or counseling patient:: 0 Critical Care Time Critical Care Time (minutes): 60
--- NOTE | 2020-04-06 19:09 | PC.NURSE ---
Pt A&Ox3, spent most of shift highflow 55l/MIN FiO2 97%, 100% NRB. Twice on CPAP 14 FiO2 100% for short duration. SaO2 83-91, goal greater than or equal to 82%. RR 20-33, FC LLL, increased WOB at times with dry cough dilaudid and fent IVP given with positive effect. Hypertensive at times, on enestro and sotalol. Apaced/NSR w/ BBB.
[2020-04-07] VITALS (17 sets, daily range): BP systolic 102–154; BP diastolic 44–73; PULSE 60–73; RESP 16–31; TEMP 36.4; O2SAT 93–99
[2020-04-07] MEDS: 0.9 % Sodium Chloride Flush 3 ML SYRINGE IVFLUSH ×3 (05:28→08:53)
[2020-04-07] MEDS: HYDROmorphone HCl 0.5 MG/0.5 ML SYRINGE 0.25 MG IVPUSH ×2 (05:29→14:10)
[2020-04-07] MEDS: Sodium Chloride 0.45 % 1,000 ML 60 ML IVCONT (05:30)
[2020-04-07] MEDS: Omeprazole 20 MG CAPSULE.DR PO (05:31)
[2020-04-07] MEDS: methylPREDNISolone Sod Succ/PF 125 MG/2 ML VIAL 80 MG IVPUSH (05:31)
[2020-04-07 05:57] LABS: Basophils Percent Auto 0.1 % (0-2); Hematocrit 37.3 % (42-52); Hemoglobin 12.2 g/dl (14.0-18.0); Imm Gran Abs Auto 0.36 X10*3/uL (0.00-0.03); Imm Gran Pct Auto 1.3 % (0.0-0.4); Lymphocytes Absolute Auto 0.6 X10*3/uL (1.2-4.9); MANUAL DIFF FLAG SCAN; Mean Corpuscular HGB Conc 32.7 g/dl (31.0-36.0); Mean Corpuscular Hemoglobin 27.4 pg (27.0-33.0); Mean Corpuscular Volume 83.6 fL (80-98); Mean Platelet Volume 10.3 fL (9.4-12.4); Monocytes Absolute Auto 0.6 X10*3/uL (0.1-1.2); Monocytes Percent Auto 2.1 % (2-11); Neutrophils Absolute Auto 25.4 X10*3/uL (2.0-8.3); Neutrophils Percent Auto 94.5 % (45-73); PCO2 VBG 36 mmHg; PO2 VBG 48 mmHg; Red Blood Count 4.46 X10*6/uL (4.60-5.80); Red Cell Distribution Width 16.6 % (11.0-16.0); SCAN SMEAR FLAG 1; White Blood Count 26.9 X10*3/uL (4.8-10.8); pH VBG 7.42 (7.32-7.43)
[2020-04-07 05:58] LABS: HCO3 VBG 24 mmol/L; Oxygen Saturation VBG 48.3 %
[2020-04-07 05:59] LABS: Platelet Count 89 X10*3/uL (160-400)
[2020-04-07 06:27] LABS: SLIDE REVIEW VERIFIED
[2020-04-07 06:41] LABS: Alanine Aminotransferase 62 U/L (0-40); Albumin Level 2.8 g/dL (3.5-5.0); Alkaline Phosphatase 94 U/L (39-117); Anion Gap 12 (12-20); Aspartate Amino Transferase 27 U/L (5-37); Bilirubin Total 1.2 mg/dL (0.0-1.0); Blood Urea Nitrogen 53 mg/dL (9-16); C Reactive Protein 5.11 mg/dL (< or = 0.50); Calcium 8.3 mg/dL (8.4-10.2); Carbon Dioxide 26 mmol/L (22-29); Chloride 108 mmol/L (96-108); Creatinine Clr Calc Pharmacy 60.9; Estimated Glomerular Filt Rate > 60; Glucose Random 141 mg/dL (60-115); Magnesium 2.4 mg/dL (1.6-2.6); Phosphorus 3.2 mg/dL (2.7-4.5); Potassium 4.8 mmol/L (3.3-5.1); Sodium 141 mmol/L (135-145); Total Protein 5.4 g/dL (6.5-8.0)
[2020-04-07 07:17] LABS: D Dimer 22510 NG/ML
[2020-04-07] MEDS: Famotidine/PF 20 MG/2 ML VIAL IVPUSH (09:07)
[2020-04-07] MEDS: Naloxone HCl 0.4 MG/ML VIAL 0.2 MG IVPUSH ×2 (09:30→09:35)
[2020-04-07 09:38] LABS: PCO2 VBG 37 mmHg; PO2 VBG 66 mmHg
[2020-04-07 09:39] LABS: Base Excess VBG -0.6 mmol/L; HCO3 VBG 23 mmol/L
[2020-04-07] MEDS: Dextrose 5 % and 0.2 % NaCl 1,000 ML 50 ML IVCONT (10:20)
--- NOTE | 2020-04-07 10:41 | PC.NURSE ---
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 MD to removed Bipap mask. Will report to oncoming RN. Original Note: This RN at bedside for AM assessment - patient unresponsive to sternal rub, VSS - MD notified and at bedside. Patient received PRN Dilaudid at 0500 on previous shift for increased work of breathing. Narcan 0.2mg IV PRN q2min ordered and administered twice with no effect. VBGs ordered and obtained - 7.40// - reported to MD during rounds. Patient changed over from Cpap to Bipap 25/11 80% per MD. Family notified of patients changed in condition. Approved from [facility] for one visitor at bedside. Son Solomon arrived and at bedside. Plan to change in plan of care to ADMINISTRATIVE SUPPORT COORDINATOR status. Will continue to monitor.
--- NOTE | 2020-04-07 11:18 | P.PNCC_ITS ---
Subjective Subjective Date of Service: 04/07/20 Interval History: Mr. Noe was admitted to ICU on Apr 02 with hypoxemic respiratory failure 2? COVID pneumonia. The patient is an 84 yo gentlemen w the following PMHx: Afib on Eliquis and sotalol; s/p PPM CAD, s/p CABG Ischemic cardiomyopathy, with systolic (EF 25%) and diastolic heart failure. On Entresto, CKD Duodenal ulcer GERD Hiatal hernia Hyperlipidemia Hypertension IBS Neuropathy Nonalcoholic fatty liver disease BPH On Mar 23, he presented to the ED with 3 week h/o cough, and tested positive for COVID. Both of his sons had COVID. In the ED that day, ambulatory room air sat was 95%. He was discharged home. He represented to the ED on Mar 28 c/o shortness of breath and cough. On a rrival was hypoxemic with Sat 85% on room air. Lactic acid was 2.2, CRP 1.03, LDH 330. CTA showed moderate bilat lower lung infiltrates consistent with COVID. No PE. (My reading: Also had mild LVH and top normal-sized or very mildly enlarged RV, w severely dilated LA.) He was admitted to Medicine and treated with Decadron (no remdesivir or plasma bec of late presentation). Progressive hypoxemia led to transfer to the ICU on Apr 02 for initiation of CPAP. Since then, he?s been doing CPAP at night and HFNC with NRBFM during the day. Initially on CPAP, his FiO2 had been able to be reduced to 80%. He?s been getting small dose Dilaudid for relief of cough and/or WOB. On Apr 05, I had a long d/w the patient?s son Feliciano and we changed his code status to DNR/DNI. Over the last couple of days, we hadn?t been able to get his FiO2 down below 100%. He stayed on CPAP all night last night, and this morning was unresponsive. See Vital Signs below. Pupils were small, but a blood gas at 09:00 showed 7.40/37/0. We put him on BiPAP 12/10/100% and his respiratory rate was 18-24, tidal volumes were 600+, sat was 99%. He was unresponsive to command and painful stimulation. He had no focal findings on neurologic exam, albeit he was 100% non interactive. Heart rate was a mixture of paced and sinus rhythm. No access musc use, no increase in WOB other than that attributable to his RR. LABORATORY DATA: As below. Notably[place] [id number]. IMAGING yesterday: Duplex scan of his lower extremities was negative for DVT. Limited echocardiogram showed normal right ventricular cavity size, normal right ventricular systolic function, and normal estimated RV systolic pressure. Estimated LV EF was about 40%. IMPRESSION: 1. Bilat COVID pneumonia. Changed steroids to Solu-Medrol 80mg bid, added thiamine, Pepcid, and Vit D. 2. Acute hypoxemic resp failure 2? above. 3. Elevated D-dimer. No evidence of VTE. 4. Unresponsiveness: Either he had a stroke (c/w the DDimer) or he?s ?willing? himself to . 5. DANIELA with CKD at baseline. 6. Hypernatremia. Resolved. 7. Underlying CMOP. Has been on Entresto. 8. AFib, status post pacemaker. Has been on Eliquis and sotalol. 9. ID: No abx at present. I spoke to his son Feliciano and we discussed the above. I indicated that my feeling was that his father was dying. Feliciano agreed. He asked if his brother Solomon could come in. We made arrangements and Solomon came in and spend an hour or so with his father. Mr. Noe remained unresponsive. It was also Solomon?s opinion that his father was ready to . Solomon left and I called Feliciano and he indicated that the family was ready to make him comfortable and let him go. 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 We took him off NIV at about 3pm. He was breathing with a reasonable resp pattern. His Sat dropped rapidly and he became apneic and pulseless at 1545. His pacemaker continued to fire. (The magnet just converted him to fixed rate AV pacing.) There was no recordable BP. He continued to be apneic. Time of is 1545. Critical care time: 60+ min. Physical Exam Vital Signs: Vital Signs: Last Vital Signs Temp 98.6 F 04/06/20 19:45 Pulse 69 04/07/20 11:00 Resp 22 H 04/07/20 11:00 BP 146/70 H 04/07/20 11:00 Pulse Ox 97 04/07/20 11:00 Body Mass Index 26.3 Objective Data Labs CBC & Chem 7: 04/07/20 05:40 04/07/20 05:40 Labs: Laboratory Results - last 24 hr 04/06/20 04/07/20 04/07/20 11:00 05:40 05:40 WBC 26.9 H RBC 4.46 L Hgb 12.2 L Hct 37.3 L MCV 83.6 MCH 27.4 MCHC 32.7 RDW 16.6 H Plt Count 89 L D MPV 10.3 Immature Gran % (Auto) 1.3 H Neut % (Auto) 94.5 H Lymph % (Auto) 2.0 L [place] % (Auto) 2.1 Eos % (Auto) 0.0 Baso % (Auto) 0.1 Lymph # (Auto) 0.6 L [place] # (Auto) 0.6 Eos # (Auto) 0.0 Baso # (Auto) 0.0 Abs Immat Gran (auto) 0.36 H Absolute Neuts (auto) 25.4 H Absolute Nucleated RBC 0.000 Nucleated RBC % (auto) 0.0 Smear Tech's Comments VERIFIED D-Dimer 35622 VBG pH VBG pCO2 VBG pO2 VBG HCO3 VBG O2 Saturation VBG Base Excess Sodium Potassium Chloride Carbon Dioxide Anion Gap BUN Creatinine Estim Creat Clear Calc Estimated GFR Random Glucose Calcium Phosphorus Magnesium Total Bilirubin AST ALT Alkaline Phosphatase C-Reactive Protein Total Protein Albumin Ur Random Sodium 26.0 04/07/20 04/07/20 04/07/20 05:40 05:40 09:25 WBC RBC Hgb Hct MCV MCH MCHC RDW Plt Count MPV Immature Gran % (Auto) Neut % (Auto) Lymph % (Auto) [place] % (Auto) Eos % (Auto) Baso % (Auto) Lymph # (Auto) [place] # (Auto) Eos # (Auto) Baso # (Auto) Abs Immat Gran (auto) Absolute Neuts (auto) Absolute Nucleated RBC Nucleated RBC % (auto) Smear Tech's Comments D-Dimer VBG pH 7.42 7.40 VBG pCO2 36 37 VBG pO2 48 66 VBG HCO3 24 23 VBG O2 Saturation 48.3 88.0 VBG Base Excess 0.0 -0.6 Sodium 141 Potassium 4.8 Chloride 108 Carbon Dioxide 26 Anion Gap 12 BUN 53 H Creatinine 0.80 Estim Creat Clear Calc 60.9 Estimated GFR > 60 Random Glucose 141 H Calcium 8.3 L Phosphorus 3.2 Magnesium 2.4 Total Bilirubin 1.2 H AST 27 ALT 62 H Alkaline Phosphatase 94 D C-Reactive Protein 5.11 H Total Protein 5.4 L Albumin 2.8 L Ur Random Sodium Microbiology Microbiology Results: Microbiology 03/28/20 09:11 Blood - Venous Blood Culture - Final No growth after 5 days. 03/28/20 08:55 Blood - Venous Blood Culture - Final No growth after 5 days. Progress Note: A&P Time Spent With Patient Time: Total time spent is greater than 50% in coordination of care (as documented) at patient's floor/unit and/or counseling patient: Total time spent with greater than 50% in coordination of care (as documented) at patient's floor/unit and/or counseling patient:: 0 Critical Care Time Critical Care Time (minutes): 60
--- NOTE | 2020-04-07 11:36 | MHC.CLN ---
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
[2020-04-07] MEDS: fentaNYL citrate/NS 1,000 MCG/100 ML PLAST..BAG 2.5 MCG IVCONT (14:15)
--- NOTE | 2020-04-07 18:49 | PC.NURSE ---
home per [facility]ulu [facility] in [place]. Organ bank called and decline. Reference # [id number], spoke with Za
--- NOTE | 2021-01-27 16:55 | P.DS_ITS ---
DS: Providers Provider Date of Service: 01/27/21 Primary care physician: Unknown Physician DS: Summary Hospital Course Hospital Course: This is an administrative note that directs the reader to the 04/07/[address] Guzman for the full discharge summary. Time Spent with Patient Time attestation: Total time spent providing and/or coordinating discharge services: Discharge coordination time: Less than 30 minutes Quality: Stroke Does the patient have a stroke diagnosis?: No Physical Exam Vital Signs: Vital Signs: Last Vital Signs Temp 99.1 F 03/23/20 21:50 Pulse 76 03/23/20 21:50 Resp 15 03/23/20 21:50 BP 142/57 H 03/23/20 21:50 Pulse Ox 95 03/23/20 21:50 BMI result Body Mass Index 25.7 DS: Data Data Completed and Pending Completed studies during hospitalization [Text1]: Procedures Assistance with Respiratory Ventilation, 24-96 Consecutive Hours, Continuous Positive Airway Pressure (03/28/20) Dilation of Esophagogastric Junction with Intraluminal Device, Via Natural or Artificial Opening Endoscopic (02/03/20) Excision of Esophagus, Via Natural or Artificial Opening Endoscopic, Diagnostic (02/03/20) Insertion of Infusion Device into Right Atrium, Percutaneous Approach (03/28/20) Ultrasonography of Superior Vena Cava, Guidance (03/28/20) Discharge Plan Discharge Clinical Impression: COVID-19 Patient Disposition: Home, Self-Care Instructions: COVID-19 (Coronavirus Disease 2019) (ED) Additional Instructions: You were evaluated for intractable cough. You tested positive for COVID-19 We are giving you azithromycin to prevent a viral pneumonia from progressing into a bacterial pneumonia. Use Tessalon Perles as needed for cough. Take dexamethasone 6 mg daily for the next 10 days Thank you for choosing this emergency department for evaluation. Please follow-up with primary care physician as needed. Return to the emergency department for any new, concerning, or worsening symptoms. Prescriptions: No Action atorvastatin 20 mg tablet 1 tab PO DAILY RF: 0 ranolazine 500 mg tablet extended release 12 hr 1 tab PO BID RF: 0 tamsulosin 0.4 mg capsule 1 cap PO DAILY RF: 0 gabapentin 100 mg capsule 1 cap PO BID RF: 0 omeprazole 20 mg capsule,delayed release(DR/EC) 20 mg PO BID Qty: 60 RF: 0 sotalol 80 mg tablet 40 mg PO BID RF: 0 Entresto 24-26 mg tablet 1 tab PO BID RF: 0 Eliquis 5 mg tablet 1 tab PO BID RF: 0 methimazole 10 mg tablet 10 mg PO DAILY 30 Days Qty: 30 RF: 6 Interventions: ED Discharge Assessment Last Done: 03/23/20 23:30 Discharge Date/Time: 03/23/20 23:32
== END 2020-04-07 17:55 | disposition expired | DRG 177 ==
LOC: HO.ED 12:21 → HO.EDOVER 15:18 → HO.IMC 03-29 20:17 → HO.ICU 04-02 12:02
PROVIDERS: Hospitalist; Internal Medicine Pulmonary Disease; Physician Assistant Medical; Admitting Provider Student in an Organized Health Care Education/Training Program; Emergency Provider Emergency Medicine Emergency Medical Services; PCP Family Medicine; Visit Provider Anesthesiology
DX: U07.1 COVID-19 (principal); J12.82 Pneumonia due to coronavirus disease 2019; J80 Acute respiratory distress syndrome; I13.0 Hypertensive heart and chronic kidney disease with heart failure and stage 1 through stage 4 chronic kidney disease, or unspecified chronic kidney disease; N17.9 Acute kidney failure, unspecified; I50.42 Chronic combined systolic (congestive) and diastolic (congestive) heart failure; I25.10 Atherosclerotic heart disease of native coronary artery without angina pectoris; E78.5 Hyperlipidemia, unspecified; K27.9 Peptic ulcer, site unspecified, unspecified as acute or chronic, without hemorrhage or perforation; N40.1 Benign prostatic hyperplasia with lower urinary tract symptoms; R33.8 Other retention of urine; I25.5 Ischemic cardiomyopathy; K21.9 Gastro-esophageal reflux disease without esophagitis; K76.0 Fatty (change of) liver, not elsewhere classified; I48.91 Unspecified atrial fibrillation; Z95.0 Presence of cardiac pacemaker; N18.9 Chronic kidney disease, unspecified; Z95.1 Presence of aortocoronary bypass graft; Z79.01 Long term (current) use of anticoagulants; Z87.891 Personal history of nicotine dependence; Z79.899 Other long term (current) drug therapy; Z51.5 Encounter for palliative care
CPT/HCPCS: 36415; 36600; 71045; 71275; 80048; 80053; 80076; 81003; 82040; 82728; 82803; 83605; 83615; 83735; 83880; 84100; 84145; 84300; 84484; 85025; 85027; 85379; 85610; 85730; 86140; 87040; 93005; 93308; 93970; 94640; 94660; 94799; 96361; 96374; 96375; 99285; 99291; C1758; J0696; J1100; J1170; J1940; J2270; J2405; J2930; J3010; J3411; Q9967